=== PATIENT | male | born 1935 | race Caucasian/White ===

== ENCOUNTER 2025-06-22 12:54 | Emergency (ER) | payer OTHER, SELFPAY ==
[2025-06-22 12:57] VITALS: BP 153/82
--- NOTE | 2025-06-22 15:15 | ED.GENMED ---
History of Present Illness
<CHEVY Pearson - Last Filed: 06/22/25 19:09>
General
Chief Complaint: Nose Bleed
Source: patient
Exam Limitations: none
Time Seen by Provider: 06/22/25 15:04
Nursing documentation reviewed up to this point in time: agreed with
History of Present Illness
History of Present Illness:
89-year-old male with past medical history of A-fib hypertension hyperlipidemia pacemaker on Eliquis presents to the ER for nosebleed from right nares. Started at 11 AM .patient reports he just started on Eliquis 30 days ago for A-fib.
He denies any recent trauma headache. Patient is scheduled for cardioversion next week.
Patient does report he has been worked up for leukemia and has a history of low platelets.
In addition he is scheduled for cardioversion by cardiology at an outside institution on Tuesday
Phy Exam
<CHEVY Pearson - Last Filed: 06/22/25 19:09>
General Physical Exam
General Presentation: no apparent distress
General age: appears stated age
General Skin: warm and dry
General Habitus: normal
General Hydration: appears well hydrated
ENT Exam
ENT Exam: other (On exam patient presents with nasal clip small oozing of blood from right nares )
Eye Exam
Eye Exam: PERRL
Cardiovascular Exam
Cardiovascular Exam: irregularly irregular
Pulmonary Exam
Pulmonary Exam: lungs clear and no respiratory distress
Neurological Exam
Neurological Exam: alert and oriented x3
Musculoskeletal Exam
Musculoskeletal Exam: full ROM
Skin Exam
Skin Exam: normal color and warm/dry
Psychiatric Exam
Psychiatric Exam: normal mood/affect
Course
<CHEVY Pearson - Last Filed: 06/22/25 19:09>
Orders/Labs/Results
Orders:
Orders
06/22/25 16:17
Complete Blood Count/With Diff Urgent
Comprehensive Metabolic Panel Urgent
Manual Differential Urgent
Abnormal Lab Results
06/22/25
16:17
RBC 3.64 L 10^6/uL
(4.70-6.10)
Hgb 12.9 L g/dL
(13.0-18.0)
Hct 36.9 L %
(39.0-52.0)
MCV 101.4 H fL
(80.0-94.0)
MCH 35.4 H pg
(27.0-31.0)
RDW 15.5 H %
(11.5-14.5)
Plt Count 74 L 10^3/uL
(130-400)
Monocytes (Manual) 18 H %
(2-9)
Sodium 134 L mmol/L
(135-145)
Carbon Dioxide 21 L mmol/L
(22-30)
BUN 33 H mg/dl
(9-20)
Total Bilirubin 1.5 H mg/dl
(0.2-1.3)
06/22/25 16:17
06/22/25 16:17
Vital Signs
Initial and Last Documented VS:
Initial Vital Signs
Temp Resp BP Pulse Ox
98 F 16 153/82 97
06/22/25 12:57 06/22/25 12:57 06/22/25 12:57 06/22/25 12:57
Last Documented Vital Signs
Temp Pulse Resp BP Pulse Ox
98 F 61 18 175/91 99
06/22/25 12:57 06/22/25 18:12 06/22/25 18:12 06/22/25 18:12 06/22/25 18:12
Drywall Sander consulted with Physician
Drywall Sander consulted with physician?: Yes
Name of Physician Consulted: [facility]
<Jl Antonio, DO - Last Filed: 06/22/25 19:03>
Orders/Labs/Results
Orders:
Orders
06/22/25 16:17
Complete Blood Count/With Diff Urgent
Comprehensive Metabolic Panel Urgent
Manual Differential Urgent
Abnormal Lab Results
06/22/25
16:17
RBC 3.64 L 10^6/uL
(4.70-6.10)
Hgb 12.9 L g/dL
(13.0-18.0)
Hct 36.9 L %
(39.0-52.0)
MCV 101.4 H fL
(80.0-94.0)
MCH 35.4 H pg
(27.0-31.0)
RDW 15.5 H %
(11.5-14.5)
Plt Count 74 L 10^3/uL
(130-400)
Monocytes (Manual) 18 H %
(2-9)
Sodium 134 L mmol/L
(135-145)
Carbon Dioxide 21 L mmol/L
(22-30)
BUN 33 H mg/dl
(9-20)
Total Bilirubin 1.5 H mg/dl
(0.2-1.3)
06/22/25 16:17
06/22/25 16:17
Vital Signs
Initial and Last Documented VS:
Initial Vital Signs
Temp Resp BP Pulse Ox
98 F 16 153/82 97
06/22/25 12:57 06/22/25 12:57 06/22/25 12:57 06/22/25 12:57
Last Documented Vital Signs
Temp Pulse Resp BP Pulse Ox
98 F 61 18 175/91 99
06/22/25 12:57 06/22/25 18:12 06/22/25 18:12 06/22/25 18:12 06/22/25 18:12
Procedures
<CHEVY Pearson - Last Filed: 06/22/25 19:09>
Nosebleed
Drug treatment: Epinephrine
Treatment: Merocel packing
Post treatment bleeding: none- good control
<CHEVY Pearson - Last Filed: 06/22/25 19:09>
MDM/Problems Addressed
Differential Diagnosis Includes:
Not limited to epistaxis
MDM/Problems Addressed:
Patient is an 89-year-old male who presents to the ER with nosebleed, right nares.
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
Patient present with active bleeding however bleeding was controlled and resolved with Murocel packing. Patient was monitored here. Patient's labs were checked his platelets were low at 74,000. He does report last time they were around 86,000.
He is also scheduled for cardioversion on Tuesday.
With thrombocytopenia and Eliquis will have patient hold Eliquis for the next 2 days however I did discuss importance of he with his glass blowing instructor. He will have to reschedule his cardioversion and let his glass blowing instructor know that he is off Eliquis for
2 days. He is also to see ENT on Tuesday for packing removal. He is to return if any worsening of symptoms. He is well-appearing here in the ER stable for discharge home.
1814: Prior to discharge patient started bleeding again from his right nares and 5.5 rapid Rhino inserted will continue to monitor; left nares with small area of bright red blood on the inner aspect of the septum I did cauterize this as well
1909: Patient continues without any bleeding stable for discharge home.
Chronic conditions affecting care:
Being worked up for thrombocytopenia, on Eliquis for A-fib
<CHEVY Pearson - Last Filed: 06/22/25 19:09>
*Pulse Oximetry
SaO2: 97
Oxygen Mode of Delivery: Room air
Patient hypoxic: no
*Critical Care Note
Total Time (30-74mins, 75-104mins- exclusive of procedures): Not Applicable
ED Attending Note
<CHEVY Pearson - Last Filed: 06/22/25 19:09>
-
Portions of this chart may have been created with voice recognition software.� Occasional wrong word or��sound alike� substitutions may have occurred due to the inherent limitations of voice recognition software.
<Jl Antonio DO - Last Filed: 06/22/25 19:03>
ED Attending Note
Patient seen and examined by attending physician: Yes
ED Attending Note:
I reviewed and agree with his and treatment plan by Helean Odom. Exam [id number] male with right-sided epistaxis. Bleeding improved after insertion of Epistat balloon right side. Patient with thrombocytopenia and on Eliquis. Will hold
Eliquis due to bleeding.
Discharge Plan
Departure
Patient with high blood pressure during this ER visit?: Yes
Condition: Fair
Covid-19: Not Applicable
Discharge Problem:
Acute anterior epistaxis
Instructions: Nosebleeds (DC), BLOOD PRESSURE
Referrals:
Jeremías Berman MD [Active, Otology]
Pablo Garnica MD [Family Provider, Internal Medicine]
Activity Restrictions/Additional Instructions:
As discussed stop Eliquis for the next 2 days. Please follow-up with ear nose and throat specialty on Tuesday. Call to make an appointment first thing Tuesday morning to have packing removal on Tuesday as well.
In addition please call your glass blowing instructor Tuesday and inform him of your nosebleed and that you were taken off Eliquis for 2 days.
Your cardioversion will need to be postponed.
Your platelets today were 74,000 please review this with your jewel inserter and family
Return to the ER if any worsening of symptoms including continued bleeding.
Interventions
Interventions:
*Risk Screen - Suicide Last Done: 06/22/25 13:01
*General Assessment Last Done: 06/22/25 18:13
*Neglect/Abuse Screening Last Done: 06/22/25 13:01
ED-EENT Assessment Last Done: 06/22/25 15:10
Discharge Date and Time
Print Language: BANGLADESHI
[2025-06-22 16:54] LABS: ALT (SGPT) 14 U/L (0-50); AST (SGOT) 24 U/L (17-59); Albumin 4.4 g/dl (3.5-5.0); Alkaline Phosphatase 52 U/L (38-126); Blood Urea Nitrogen 33 mg/dl (9-20); Calcium 9.6 mg/dl (8.4-10.2); Carbon Dioxide 21 mmol/L (22-30); Chloride 106 mmol/L (98-107); Glucose 91 mg/dl (70-99); Potassium 4.4 mmol/L (3.5-5.1); Sodium 134 mmol/L (135-145); Total Protein 6.8 g/dl (6.3-8.2); eGFR > 60.00
[2025-06-22 16:55] LABS: Hematocrit 36.9 % (39.0-52.0); Hemoglobin 12.9 g/dL (13.0-18.0); Mean Corp Hgb Conc. 35.0 g/dL (33.0-37.0); Mean Corpuscular Volume 101.4 fL (80.0-94.0); Platelet Count 74 10^3/uL (130-400); Red Cell Dist. Width 15.5 % (11.5-14.5)
[2025-06-22 16:56] LABS: Absolute Neutrophils -Man Diff 2.8 10^3/uL (1.4-6.5); Platelets Checked Yes
[2025-06-22 17:00] LABS: Hypochromasia Slight; Macrocytosis 1+; Target Cells Slight; Total Cells Counted 100
[2025-06-22 17:11] LABS: Normal RBC Morphology No
[2025-06-22 18:12] VITALS: BP 175/91
== END 2025-06-22 19:31 | disposition home or self-care (01) ==
LOC: EMR 12:54
PROVIDERS: Nurse Practitioner; EMERGENCY PHYSICIAN Emergency Medicine; FAMILY PHYSICIAN Internal Medicine
DX: R04.0 Epistaxis (principal); D69.6 Thrombocytopenia, unspecified; I48.91 Unspecified atrial fibrillation; I10 Essential (primary) hypertension; E78.5 Hyperlipidemia, unspecified; Z79.01 Long term (current) use of anticoagulants; Z95.0 Presence of cardiac pacemaker
CPT/HCPCS: 99283; 30901; 80053; 85025

== ENCOUNTER 2025-07-28 01:36 | Inpatient (IN) | payer MEDICARE, OTHER, SELFPAY ==
[2025-07-27 21:00] VITALS: BMI 31.1
[2025-07-27 21:03] VITALS: BP 172/74
[2025-07-27 21:06] VITALS: BP 172/74
[2025-07-27] MEDS: NSS 1000 IV (21:18)
[2025-07-27] MEDS: TYLENOL 1000 MG PO (21:20)
[2025-07-27 21:37] LABS: Hematocrit 36.0 % (39.0-52.0); Hemoglobin 12.7 g/dL (13.0-18.0); Mean Corp Hgb Conc. 35.3 g/dL (33.0-37.0); Mean Corpuscular Volume 100.6 fL (80.0-94.0); Nucleated Red Blood Cells % 0.4 % (-); Red Cell Dist. Width 16.2 % (11.5-14.5)
[2025-07-27 21:38] LABS: INR 1.55; PT 18.8 Sec (11.4-14.6)
[2025-07-27 21:39] LABS: APTT 40.7 Sec (23.4-35.0)
[2025-07-27 21:44] LABS: ALT (SGPT) 16 U/L (0-50); AST (SGOT) 26 U/L (17-59); Albumin 4.4 g/dl (3.5-5.0); Alkaline Phosphatase 60 U/L (38-126); Blood Urea Nitrogen 22 mg/dl (9-20); Calcium 9.1 mg/dl (8.4-10.2); Carbon Dioxide 24 mmol/L (22-30); Chloride 99 mmol/L (98-107); Estimated Creatinine Clearance 53 ml/min; Glucose 148 mg/dl (70-99); Potassium 4.1 mmol/L (3.5-5.1); Sodium 131 mmol/L (135-145); Total Protein 7.0 g/dl (6.3-8.2); eGFR > 60.00
[2025-07-27 21:48] LABS: COVID-19 Antigen Negative (Negative)
[2025-07-27 22:00] VITALS: BP 134/62
[2025-07-27 22:01] LABS: Platelet Count 59 10^3/uL (130-400)
--- NOTE | 2025-07-27 22:30 | ED.GENMED ---
History of Present Illness
General
Chief Complaint: Fatigue
Time Seen by Provider: 07/27/25 21:01
Nursing documentation reviewed up to this point in time: agreed with
History of Present Illness
History of Present Illness:
89-year-old male brought to the ER by EMS for evaluation of fever and weakness which started it within the past few days. Patient is denying any complaints of pain. reports that he has been having a cough and decreased appetite today. No
reported sick contacts. No recent antibiotic usage. No rash. No diarrhea. No vomiting. Patient denies headache or change in vision. He denies chest pain or shortness of breath. He denies urinary discomforts. No recent or prior history of
urinary tract infection per the who is present at bedside to provide history
Review of Systems
Review of Systems
Allergies reviewed?: Yes
Phy Exam
Physical Exam
Physical Exam:
Patient is elderly, awake, alert, appears in no acute distress, head is NCAT, PERRL, EOMI mucous membranes tacky, conjunctiva pink, heart regular rate and rhythm without murmurs or ectopy, lungs are clear to auscultation without wheezes rales or
rhonchi, no JVD, abdomen is soft and nontender on palpation, extremities without edema, GCS is 15
Sepsis
Sepsis Screening
Sepsis Assessment: Severe Sepsis
Sepsis Screening: Worsening O2 Saturation
Sepsis Screen
Sepsis Screen: Severe Sepsis
Date: 07/28/25
Time: 01:28
Course
Orders/Labs/Results
Orders:
Orders
07/27/25 21:01
Electrocardiogram (*1) Urgent
Reason for Study: Other
Other Reason for Exam: sepsis
Cardiac Monitoring- Treatment ONCE
EKG- Treatment ONCE
Pulse Ox/cont/shift [RESP] Urgent
Quantity: 1
07/27/25 21:02
CR Chest - 2 Views Urgent
Comment:
Reason For Exam: fever
07/27/25 21:07
0.9% Sodium Chloride 1000 ml [Nss] 1,000 ml IV BOLUS
Acetaminophen [Tylenol] 1,000 mg PO NOW STA
07/27/25 21:13
Blood Culture Q30M
SERENA Source: Blood/Venous
Specimen Description:
07/27/25 21:14
COVID-19 Antigen Urgent
Source: Nasal Swab
Complete Blood Count/With Diff Urgent
Comprehensive Metabolic Panel Urgent
Lactic Acid Q4H
Comment: CANCEL 2nd LACTIC ACID IF 1st LACTIC ACID IS LESS THAN 2
PTT Urgent
Prothrombin Time Urgent
Urinalysis Reflex To Culture Urgent
Date Specimen was Collected: 07/27/25
Time Specimen was Collected: 21:05
Comment: straight cath
Urine Microscopic Reflex Cult Urgent
Blood Culture Q30M
SERENA Source: Blood/Venous
Specimen Description:
Influenza A+B Rapid Molecular Urgent
SERENA Source: Nasal Swab
Specimen Description:
Urine Culture Urgent
SERENA Source: U
Specimen Description:
Date Specimen was Collected: 07/27/25
Time Specimen was Collected: 21:05
07/27/25 22:28
CefTRIAXone [Rocephin] 2,000 mg IV NOW STA
07/27/25 22:29
Vancomycin [Vancocin] 2,000 mg 0.9% Sodium Chloride 500 ml [Nss] 500 ml IV NOW
07/27/25 23:25
Sterile Water [Sterile Water For Injection] 20 ml .ROUTE .STK-MED
07/28/25 00:27
Admit/Transfer Patient As Directed
Co-Sign Provider:
Level of Care: Inpatient admission
Assign to:: IMU- Intermediate Care
Physician / Group: Nataly
Diagnosis: sepsis
Reason for Hospitalization: sepsis, uti
Expected length of stay greater than two midnights?: Yes
ELOS- Estimated Length of Stay in days: 2
I certify the patient meets the requirements for IP care: Yes
PRN Pain Medication Management As Directed
May give lesser potent ordered pain med per pt: Yes
preference::
Protocol:: Medication orders for pain may be administered in a
manner that supports deferring to patient preference
when the pt is:
- Requesting an ordered lesser potent pain medication.
Least to most potent pain medications are defined
as: acetaminophen < NSAID < tramadol < opioids
(morphine, oxycodone, hydromorphone).
- Requesting a lesser dose of the same medication IF
ORDERED.
- Requesting a less intrusive route of administration
if both routes are prescribed by the provider (PO <
IV).
07/28/25 00:28
Code Status As Directed
Resuscitation Status: Full Code
07/28/25 01:15
Lactic Acid Q4H
Comment: CANCEL 2nd LACTIC ACID IF 1st LACTIC ACID IS LESS THAN 2
Abnormal Lab Results
07/27/25
21:14
RBC 3.58 L 10^6/uL
(4.70-6.10)
Hgb 12.7 L g/dL
(13.0-18.0)
Hct 36.0 L %
(39.0-52.0)
MCV 100.6 H fL
(80.0-94.0)
MCH 35.5 H pg
(27.0-31.0)
RDW 16.2 H %
(11.5-14.5)
Plt Count 59 L 10^3/uL
(130-400)
Abs Immat Gran (auto) 0.1 H 10^3/uL
(0-0.05)
Absolute Lymphs (auto) 0.2 L 10^3/uL
(1.2-3.4)
Immature Gran % 2.2 H %
(0-0.5)
Neutrophils % 82.1 H %
(42.2-75.2)
Lymphocytes % 3.8 L %
(20.5-51.1)
Monocytes % 11.7 H %
(1.7-9.3)
PT 18.8 H Sec
(11.4-14.6)
APTT 40.7 H Sec
(23.4-35.0)
Sodium 131 L mmol/L
(135-145)
BUN 22 H mg/dl
(9-20)
Glucose 148 H mg/dl
(70-99)
Total Bilirubin 1.9 H mg/dl
(0.2-1.3)
Urine Ketones 1+ A
(Negative)
Ur Occult Blood Reflex 2+ A
(Negative)
Urine Nitrite (Reflex) Positive A
(Negative)
Leukocyte Esterase Rfl 2+ A
(Negative)
Urine RBC 3-6 A /HPF
(0-2)
Urine WBC (Reflex) 30-40 A /HPF
(0-5)
Urine Bacteria (Reflex) Many A
(Negative)
Urine Glucose 4+ A
(Negative)
Urine Albumin (Reflex) 1+ A
(Neg - Trace)
07/27/25 21:14
07/27/25 21:14
White blood count normal. Mild hyponatremia, urinalysis consistent with infection
Vital Signs
Initial and Last Documented VS:
Initial Vital Signs
BP
172/74
07/27/25 21:03
Last Documented Vital Signs
Temp Pulse Resp BP Pulse Ox
99.1 F 61 19 96/59 98
07/28/25 00:41 07/28/25 01:15 07/28/25 01:15 07/28/25 01:00 07/28/25 01:15
MDM/Problems Addressed
Differential Diagnosis Includes:
Differential diagnosis to consider pneumonia, influenza, COVID, UTI, sepsis along with other allergies considered
Chronic conditions affecting care:
Advanced age, chronic anticoagulant use, atrial fibrillation, hypertension, hyperlipidemia
*Radiology
Radiology exam reviewed: preliminary read by ED provider (I independently viewed and interpreted two-view chest x-ray showing no infiltrate, normal cardiac silhouette) and radiology read reviewed (Is in agreement with pulmonary reading)
*Pulse Oximetry
SaO2: 96
Nasal Cannula flow liters per minute: 2
Oxygen Mode of Delivery: Room air
Patient hypoxic: yes
Comment: 90% on room air
*EKG
Interpreted by ED Provider?: Yes (I independently viewed and interpreted twelve-lead EKG showing paced rhythm, rate 66, nonspecific EKG without evidence for acute ischemia, no prior for comparison)
*Reservoir Engineer Interpretation
Rate: other (I reviewed and interpreted rhythm strip showing paced rhythm, no ectopy)
*Critical Care Note
Total Time (30-74mins, 75-104mins- exclusive of procedures): Not Applicable
Update Note
Update Note:
Chest x-ray is clear. White blood count is normal. Patient has fever of unclear etiology. Broad-spectrum antibiotics are ordered. Will also obtain CT if urinalysis results are unrevealing
Once all test results available, I discussed with patient and present at bedside presence of urinary tract infection and need for admission, in particular given new use of oxygen for hypoxia and generalized weakness. They agree with plan. I
reviewed full patient presentation with the hospitalist who accepts patient for admission
ED Attending Note
-
Portions of this chart may have been created with voice recognition software.� Occasional wrong word or��sound alike� substitutions may have occurred due to the inherent limitations of voice recognition software.
Discharge Plan
Departure
Patient Disposition: Admit
Date of Disposition: 07/27/25
Time of Disposition: 23:36
Presentation/result/management discussed w/ accepting MD/DO: Hospitalist
Discharge Problem:
Urinary tract infection, Sepsis, Hypoxia
Prescriptions:
No Action
atorvastatin 80 mg tablet
80 mg PO DAILY
clonidine HCl 0.1 mg tablet
0.1 mg PO BID
carvedilol 6.25 mg tablet
6.25 mg PO BID
tamsulosin 0.4 mg capsule
0.4 mg PO HS
irbesartan 75 mg tablet
75 mg PO DAILY
irbesartan 150 mg tablet
150 mg PO HS
dutasteride 0.5 mg capsule
0.5 mg PO DAILY
tadalafil 5 mg tablet
5 mg PO DAILY
Eliquis 5 mg tablet
5 mg PO BID
dapagliflozin propanediol [Farxiga] 10 mg tablet
10 mg PO DAILY
Referrals:
UNKNOWN - PT DOES,NOT KNOW [Family Provider]
Interventions
Interventions:
*Risk Screen - Suicide Last Done: 07/27/25 21:08
*General Assessment Last Done: 07/27/25 21:08
*Neglect/Abuse Screening Last Done: 07/27/25 21:08
*ED- Fall Risk Assessment Last Done: 07/27/25 21:08
*ED COVID-19 Vaccine History Last Done: 07/27/25 21:08
*ED Influenza Vaccine History Last Done: 07/27/25 21:08
Discharge Date and Time
Print Language: MALAY
[2025-07-27 22:37] LABS: Urine Character Slightly Cloudy (Clear)
[2025-07-27 22:49] LABS: Urine Squamous Cell 0-2 /LPF (Few)
[2025-07-27 22:50] LABS: Urine White Cell 30-40 /HPF (0-5)
[2025-07-27 23:00] VITALS: BP 111/66
[2025-07-27] MEDS: ROCEPHIN 2000 MG IV (23:30)
[2025-07-27] MEDS: VANCOCIN 540 MG IV (23:31)
[2025-07-28] VITALS (37 sets, daily range): BP systolic 80–149; BP diastolic 43–77; PULSE 70; O2SAT 96; BMI 31.1
--- NOTE | 2025-07-28 00:05 | HPS.HSE ---
Family Physician
-
Family Physician: NOT KNOW UNKNOWN - PT DOES
Chief Complaint
-
Weakness
History of Present Illness
89-year-old male with past medical history significant for atrial fibrillation on anticoagulation, hypertension, BPH, hyperlipidemia who presents to the emergency department via EMS for evaluation of fever and weakness.
Patient is denying any complaints in the ED. Spouse reports that he has been having a cough and a decreased appetite today. They do not have any known sick contacts. Has been no rash, no diarrhea, no nausea or vomiting. Denies any abdominal
pain. Patient denies any neck pain or neck stiffness. He denies any feeling of shortness of breath. He denies any urinary symptoms. He has no prior history of urinary tract infections and denies any flank pain. Denies any falls.
In the emergency department patient was febrile to 102.7, blood pressure was 112/60 with a pulse rate of 69 and been satting 96% on room air. Chest x-ray shows no infiltrates whatsoever. ECG shows a paced rhythm at rate of 66. CBC notable for
platelet count of 59 but otherwise unremarkable. INR was 1.5.
Electrolytes notable for sodium of 131, BUN and creatinine were normal.
UA was markedly positive for nitrites leukocyte esterase and WBCs as well as bacteria. His COVID and flu test were negative.
Medical History
Past Medical History
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
Past Surgical History: Reports Appendectomy
Social History
Tobacco: Non-smoker
Alcohol: None
Drug: None
Family History
Family History: Not pertinent
Allergies / Home Medications
Allergies reflects when Allergies were last updated in [employer].
Home Medications with original date entered in [employer]
Allergy/Medication List:
Allergies
Allergy/AdvReac Type Severity Reaction Status Date / Time
No Known Allergies Allergy Verified 07/27/25 21:01
Home Medications
apixaban 5 mg tablet (Eliquis) 5 mg PO BID 07/28/25
atorvastatin 80 mg tablet 80 mg PO DAILY 07/28/25
carvedilol 6.25 mg tablet 6.25 mg PO BID 07/28/25
clonidine HCl 0.1 mg tablet 0.1 mg PO BID 07/28/25
dapagliflozin propanediol 10 mg tablet (Farxiga) 10 mg PO DAILY 07/28/25
dutasteride 0.5 mg capsule 0.5 mg PO DAILY 07/28/25
irbesartan 150 mg tablet 150 mg PO HS 07/28/25
irbesartan 75 mg tablet 75 mg PO DAILY 07/28/25
tadalafil 5 mg tablet 5 mg PO DAILY 07/28/25
tamsulosin 0.4 mg capsule 0.4 mg PO HS 07/28/25
Review of Systems
-
Unable to obtain full review of systems at this time due to: Acuity
Physical Exam
Vital Signs
Vital Signs
Temp Pulse Resp BP Pulse Ox
102.7 F H 69 23 134/62 96
07/27/25 21:06 07/27/25 22:00 07/27/25 22:00 07/27/25 22:00 07/27/25 22:31
Physical Exam
General: No Apparent Distress and Conversant
HEENT: NormoCephalic, Anicteric, Moist mucous membranes and Oxygen
Respiratory: Crackles (Right lower lobe crackles)
Cardiac: S1/S2 and Regular Rhythm; No Murmur, Rub, Gallop or Peripheral Edema
Breast: Deferred by me
GI: Non Tender and Normal Bowel Sounds
Rectal: Deferred by Provider
Genito-urinary: Deferred by me
Musculoskeletal: No Clubbing, No Cyanosis and No Edema
Skin: Warm
Neuro: AO x 3 and Nonfocal/grossly intact
Psych: Calm
Laboratory Results
-
07/27/25:14
07/27/25 21:14
Laboratory Results
PT 18.8 Sec (11.4-14.6) H 07/27/25 21:14
INR 1.55 07/27/25 21:14
APTT 40.7 Sec (23.4-35.0) H 07/27/25 21:14
Lactic Acid 1.6 mmol/L (0.7-2.0) 07/27/25:14
Total Bilirubin 1.9 mg/dl (0.2-1.3) H 07/27/25:14
AST 26 U/L (17-59) 07/27/25:14
ALT 16 U/L (0-50) 07/27/25:14
Alkaline Phosphatase 60 U/L (38-126) 07/27/25:14
Data Reviewed
-
Diagnostic Radiology: Image Personally Visualized and interpreted and Report Reviewed by me
Medical Tests (Nuc Med, Echo, EKG etc): Image Personally Visualized and interpreted
Lab Data: Labs Reviewed by me
Old Records: Reviewed
Impression/Plan
-
IMPRESSION:
89-year-old male with past medical history significant for atrial fibrillation, hypertension, BPH, valve replacement who presents to the emergency department with fever and weakness. Unclear extent of the events. Patient actually denied any
urinary symptoms but was incidentally found to have a urinary tract infection with likely positive UA after straight catheterization. His chest x-ray shows no convincing infiltrates but he is requiring 2 L of oxygen. CBC was notable for platelet
count of 59 but otherwise unremarkable. There is a left shift but no bands reported. COVID and flu are negative. Electrolytes notable for a sodium of 131 but otherwise unremarkable. His creatinine is stable. Infectious sources definitely UTI
but cannot rule out pneumonia entirely.
PLAN:
Urinary tract infection -likely on the basis of BPH, no history of kidney stones. And no HAVEN to suggest acute retention.
-Admit to IMU given sepsis
-Patient's blood pressure has been trickling down from the 170s now 200s systolic with a MAP of 68, will monitor in IMU for now and start pressors if MAP is below 60.
-He is status post 1 L normal saline
-Blood cultures sent, urine culture sent
-IV ceftriaxone 2 g daily continued
-IV vancomycin x 1 given in ED, will check MRSA swab as well as procalcitonin to determine continuation
-Supplemental oxygen
- CT abdomen and pelvis if hemodynamically significant compromise or persistent fever.
-Incentive spirometry
Hypertension
-Will continue carvedilol with hold parameters
-Hold clonidine for now
-Hold ARB for now
BPH
-Continue alpha blockade and tadalafil as well as dutasteride
Atrial fibrillation -currently controlled and paced rhythm
- On apixaban, continue for now
- Continue Coreg with hold parameters
Thrombocytopenia -no prior CBC in record here. No known thrombocytopenia possibly related to an acute infectious process
- Continue Eliquis, no current risk of bleeding, consider stopping if thrombocytopenia goes below 40.
- Monitor for now, once afebrile and infection resolved can consider hematology consult if no improvement
DVT prophylaxis�on apixaban
CODE STATUS�full code
[2025-07-28 06:11] LABS: Hematocrit 32.5 % (39.0-52.0); Hemoglobin 11.1 g/dL (13.0-18.0); Mean Corp Hgb Conc. 34.2 g/dL (33.0-37.0); Mean Corpuscular Volume 101.6 fL (80.0-94.0); Platelet Count 51 10^3/uL (130-400); Red Cell Dist. Width 16.6 % (11.5-14.5)
[2025-07-28 06:45] LABS: Procalcitonin 7.74 ng/ml (0.0-0.25)
[2025-07-28] MEDS: LIPITOR 80 MG PO (07:30)
[2025-07-28] MEDS: TYLENOL 650 MG PO ×2 (07:30→20:39)
[2025-07-28] MEDS: FARXIGA 10 MG PO (07:30)
[2025-07-28] MEDS: PROSCAR 5 MG PO (07:30)
[2025-07-28] MEDS: ELIQUIS 5 MG PO ×2 (07:30→20:48)
[2025-07-28] MEDS: COREG 6.25 MG PO (07:30)
[2025-07-28 07:36] LABS: Glucose - Point of Care 100 mg/dl (70-99)
--- NOTE | 2025-07-28 08:56 | W.PN.HOSP.TC ---
Today's Communication/Plan
-
see PN
Assessment / Plan
Assessment / Plan
89yo M with PMHx of Afib on ELiquis s/p PPM, HTN, BPH with chronic urinary retention self-cath at home as needed (4-6 times a day), HLD came with few days of progressive weakness and fevers, developed also cough with sputum, managed for UTI and
possible acute bronchitis
A/P
#UTI
Sepsis concern on admission, however rapidly resolved as not seen during next day eval
US renal
Ceftriaxone pending Ucx
#Mild respiratory insufficiency
Wean off O2
#Acute bronchitis
DOxy
COVID-19 and influenza PCR neg
#CHronic thrombocytopenia
#Elevated bilirubin
no RUQ pain
Previously followed by apiarist in [place] as per patient
follow direct bili, LDH and retics
Reccomend to cont following with established specialists
#DM type 2
patient reported most recent ZSilp3v 6.5%
DM diet, accuchecks and insulin SS
Recheck HgbA1c
#Mild bibasilar crackes
LAsix PRN, no overt CHF and pulm congestion on XR
#Afib, unspecified
#BPH
#Essential HTN
S/P ppm
cont straight cath - patient can feel when he needs it
cont home meds
DVT ppx on Elqiusi
FUll code
I have spent at least 58 min reviewing chart, test results and providing direct patient care
Anticipated Discharge: 24 - 48 hours
Subjective/Interval History
-
Date of Service: July 28, 2025
Objective Data
-
Labs:
Laboratory Results
07/27/25 07/28/25
21:14 05:52
WBC 4.9 12.9 H
Hgb 12.7 L 11.1 L
Hct 36.0 L 32.5 L
Plt Count 59 L 51 L
PT 18.8 H
INR 1.55
APTT 40.7 H
Sodium 131 L
Potassium 4.1
Chloride 99
Carbon Dioxide 24
BUN 22 H
Creatinine 1.0
Glucose 148 H
Calcium 9.1
Total Bilirubin 1.9 H
AST 26
ALT 16
Alkaline Phosphatase 60
Vital Signs:
Vital Signs
Temp Pulse Resp BP Pulse Ox
99.9 F 65 28 130/59 97
07/28/25 07:42 07/28/25 07:30 07/28/25 07:30 07/28/25 07:30 07/28/25 07:30
I&O
07/27/25 07/28/25 07/29/25
06:59 06:59 06:59
Output Total 400 / 400
Balance -400 / -400
Review of Systems
-
History Source: Patient
All other systems: Reviewed and negative
Physical Exam
-
General: No Apparent Distress
HEENT: Normocephalic
Respiratory: Crackles
GI: Soft, Nontender and Nondistended
Genito-urinary: No Costovertebral Tender
Musculoskeletal: No Clubbing, No Cyanosis and No Edema
Neuro: Awake, Alert, Oriented and AO x 3
Psych: Calm
[2025-07-28 09:06] LABS: Reticulocyte Count 2.3 % (0.4-2.8)
[2025-07-28] MEDS: VIBRAMYCIN 100 MG PO (09:31)
--- NOTE | 2025-07-28 09:56 | CM ---
Patient seen at bedside in ED. Patient states that he lives with his in a 2 story home. Patient has a cane that he uses and is still driving. Patient states he lives 6 months in [place] and 6 months here in [place]. 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
and has a doctorate in education. 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 Patient uses [facility] [place] for his pharmacy needs and he states his PCP is Dr. Garnica from [facility]. Patient plan is for discharge home with no
needs. CM will continue to follow for discharge planning needs.
Plan; home with no needs vs home with VN pending medical treatment plan
[2025-07-28 10:55] LABS: Glycohemoglobin (HgbA1c) 6.2 % (4.0-5.6)
[2025-07-28] MEDS: NSS 500 IV (11:50)
[2025-07-28 12:09] LABS: Glucose - Point of Care 153 mg/dl (70-99)
[2025-07-28] MEDS: NOVOLOG FLEXPEN-LOW RESISTANCE 1 UNITS SC (13:50)
--- NOTE | 2025-07-28 14:08 | PTCARENOTE ---
Received pt from ER via stretcher, accompanied by ER staff. Pt HARISHO x3, HOH. PATEL; able to transfer to bed with assist x1; pt weak, moves slowly. VSS. Placed on telemetry:AV paced rhythm. 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
Abd obese, soft, to be on 2000 james diet. Pt DTV; self-caths; stated 'Ill let yopu know when I need it'. Oriented to 4east, currently resting in bed. Will continue to monitor.
[2025-07-28] MEDS: FLUSH (NSS) 1 FLUSH IV ×2 (14:23→15:28)
[2025-07-28] MEDS: ZOSYN 50 IV (14:23)
--- NOTE | 2025-07-28 14:31 | PHA.VAN.IN ---
Assessment
- Assessment
Renal Function: Appears similar to baseline
Maximum Temperature: 102.7F
Concomitant Antimicrobials: Piperacillin/tazobactam
AUC Dosing Plan
- Dosing Variables
Dosing Weight (kg): 87.3
Dosing CrCl (ml/min): 53
Vd coefficient (L/kg): 0.7
- Empiric Dosing
Initial / Loading Dose: Vancomycin 2000mg 07/27 at 2230, vanc 1000g now- administration pending
Maintenance Regimen: Vancomycin 1500mg IV Q24h to start 07/29 at 0600
Estimated AUC (mcg*h/mL): 520
Estimated Peak (mcg*h/mL): 35.7
Estimated Trough (mcg/ml): 11.7
Estimated Half Life (H): 14
- Monitoring
No levels ordered at this time: Consider levels in a few days.
Pharmacokinetics Vancomycin I
- -
Patient Age: 89
Patient Sex: Male
Vancomycin Day #: 2
Indication: Bacteremia
Requesting Provider: Dr. Valenzuela
Pertinent Antimicrobial Allergies:
NKA
Height / Weight:
Height 5 ft 6 in
Actual Weight 87.3 kg
- Vital Signs / Lab Results
Temp Pulse Resp BP Pulse Ox
98.3 F 62 16 109/61 96
07/28/25 13:30 07/28/25 13:30 07/28/25 13:30 07/28/25 13:30 07/28/25 13:47
Lab Results - Hematology
07/27/25 07/28/25
21:14 05:52
WBC 4.9 12.9 H
Lab Results - Chemistry
07/27/25
21:14
BUN 22 H
Creatinine 1.0
Estimated Creat Clear 53
Albumin 4.4
07/27/25 07/28/25
21:14 01:15
Lactic Acid 1.6 Cancelled
Lab Results - Urine
07/27/25
21:14
Urine Nitrite (Reflex) Positive A
Leukocyte Esterase Rfl 2+ A
Urine WBC (Reflex) 30-40 A
Ur Squamous Epith Cells 0-2
Urine Bacteria (Reflex) Many A
Microbiology Results
07/27/25 21:14 Blood Culture - Preliminary
Blood/Venous Positive culture in progress
Gram Stain - Preliminary
07/27/25 21:13 Blood Culture - Preliminary
Blood/Venous Positive culture in progress
Gram Stain - Preliminary
07/27/25 21:14 Influenza Types A & B (AYANNA) - Final
Nasal Swab Negative for Influenza A & B, NAAT
Negative results must be combined with clinical observations
and patient history.
Nucleic Acid Amplification test (NAAT)performed on the
[employer] platform.
[2025-07-28 15:00] LABS: LDH 289 U/L (120-246)
[2025-07-28] MEDS: VANCOCIN 200 IV (15:28)
--- NOTE | 2025-07-28 15:37 | PTOTSP ---
Speech Pathology
Clinical Swallow Evaluation
89M with admission for UTI presents with a functional oropharyngeal swallow. No overt s/s of aspiration observed this date.
Recommend:
1. Continue with regular textures, thin liquids
2. Meds as best tolerated
3. BARTENDER SERVER service to s/o re: no overt concerns for aspiration at this time. Please re-consult as needed.
--- NOTE | 2025-07-28 15:46 | CON.ID ---
Consultation
-
Date/Time Consultation Requested: July 28, 20251522
Date/Time Consultation Performed: July 28, 2025 154
Requesting Provider: Dr. Hernán Valenzuela
Performing Provider: Dr. Sakina Gallagher
Reason for Consultation: Staphylococcus lugdunensis bacteremia
Chief Complaint / Past History
Chief Complaint
Fever
History of Present Illness
History obtained from the patient as well as from his at bedside. He is an 89-year-old male with history of TAVR, pacemaker placement, diabetes mellitus who presented to the ED on July 27 due to fevers and chills. He started feeling unwell
Tuesday night into Tuesday. He was getting progressively weak with malaise and poor appetite. Positive shortness of breath and dry cough. He started having chills and fever. Positive headache with a fever. No rhinorrhea, or sinus congestion.
No sore throat. No chest pain. No nausea, vomiting, abdominal pain, or diarrhea. No urine symptoms or flank pain. No back pain. No ill contacts. He has been having a flutter lately. Of note he was in the ER June 22 with significant
epistaxis requiring nasal packing. In the ER, temperature 102.7 noted to be hypoxic. Chest x-ray: no infiltrates. Admission blood cultures x 2 growing Staphylococcus lugdunensis.
Past History
Additional Past Medical History:
Hypertension
TAVR t HUP
Atrial fibrillation
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
HFrEF
Thrombocytopenia
BPH
gout
Sleep apnea on CPAP
Appendectomy
Allergy History:
No Known Allergies Allergy (Verified 07/27/25 21:01)
Medications Reviewed: Yes
Current Antibiotics:
Zosyn
Vancomycin
s/pDoxycycline and ceftriaxone
Social History
Tobacco: Non-Smoker
Alcohol: None
Drug: None
Personal:
Living: With Family
Family History
Family History: Not Pertinent
Review of Systems
Review of Systems
General: Fever, Chills and Change in Appetite
HEENT: Negative Stiff Neck or Headache
Cardiovascular: Dyspnea; Negative Chest Pain
Respiratory: Cough; Negative Sputum Production
Gasteroenterology: Negative Nausea, Vomiting or Diarrhea
Genital / Urological: Negative Dysuria or Flank Pain
Endocrine: Weakness and Fatigue
All systems: All other systems were reviewed and were negative
Vital Signs
Temp Pulse Resp BP Pulse Ox
98.3 F 62 16 109/61 96
07/28/25 13:30 07/28/25 13:30 07/28/25 13:30 07/28/25 13:30 07/28/25 13:47
Physical Exam
Physical Exam
Constitutional: No Acute Distress and Comfortable
Eyes: No Conjunctival Hemorrhage and Sclera Anicteric
Cardiovascular: Regular Rate, S1/S2 and Other (LCW PPM no erythema/induration)
Pulmonary: Clear
Gastrointestinal: Soft, Non Tender and Non Distended
Genito-Urinary: Negative CVA Tenderness
Extremities: Negative Edema
Wound: None
Neurological: AO x 3
Lab / Diagnostic Study Results
07/28/25 05:52
07/27/25 21:14
Abs Immat Gran (auto) 0.1 10^3/uL (0-0.05) H 07/27/25 21:14
Absolute Neuts (auto) 4.1 10^3/uL (1.4-6.5) 07/27/25 21:14
Absolute Lymphs (auto) 0.2 10^3/uL (1.2-3.4) L 07/27/25 21:14
Absolute Monos (auto) 0.6 10^3/uL (0.1-0.6) 07/27/25 21:14
Absolute Basos (auto) 0.0 10^3/uL (0-0.2) 07/27/25 21:14
Immature Gran % 2.2 % (0-0.5) H 07/27/25 21:14
Neutrophils % 82.1 % (42.2-75.2) H 07/27/25 21:14
Lymphocytes % 3.8 % (20.5-51.1) L 07/27/25 21:14
Monocytes % 11.7 % (1.7-9.3) H 07/27/25 21:14
Eosinophils % 0.0 % (0-6) 07/27/25 21:14
Basophils % 0.2 % (0-2) 07/27/25 21:14
PT 18.8 Sec (11.4-14.6) H 07/27/25 21:14
INR 1.55 07/27/25 21:14
Lactic Acid Cancelled 07/28/25 01:15
Procalcitonin 7.74 ng/ml (0.0-0.25) H* 07/28/25 05:52
Ur Squamous Epith Cells 0-2 /LPF (Few) 07/27/25 21:14
Microbiology Results
Micro:
07/27/25 21:13 Blood Culture - Preliminary
Blood/Venous Staphylococcus lugdunensis
Gram Stain - Preliminary
07/27/25 21:14 Blood Culture - Preliminary
Blood/Venous Positive culture in progress
Gram Stain - Preliminary
07/28/25 05:52 MRSA Screen - Pending
Nose
07/27/25 21:14 Urine Culture - Pending
Urine
07/27/25 21:14 Influenza Types A & B (AYANNA) - Final
Nasal Swab Negative for Influenza A & B, NAAT
Negative results must be combined with clinical observations
and patient history.
Nucleic Acid Amplification test (NAAT)performed on the
[employer] platform.
07/27/25 CXR: No acute cardiopulmonary process.
Assessment / Plan
# Staphylococcus lugdunensis bacteremia
# Fever
# Leukocytosis
# hx bio-prosthetic valve and PPM
- Concern for infective endocarditis
- Recommend TTE. If neg -> CHERRI
- Repeat blood cx's until clear
- De-escalate abx's to cefazolin 2g IV q8.
- Follow temps and wbc.
# Conditions present on admission
Hypertension
TAVR t HUP
Atrial fibrillation
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
HFrEF
Thrombocytopenia
BPH
gout
Sleep apnea on CPAP
Appendectomy
Care Review
Plan reviewed with: Physician (Dr. Valenzuela)
--- NOTE | 2025-07-28 17:14 | PTCARENOTE ---
Pt resting comfortably since arrival on unit. VSS. Telemetry:AV paced rhythm. Maintained on nc 1 lpm- pulse ox 94%, pt with (+) slifght GRANADOS; occ dry cough. Martinez PO well. Pt HNV; earlier bladder- scan 198 ml; pt stated 'I can tell when I need to
be catheterized'. Will continue to monitor.
[2025-07-28 17:36] LABS: Glucose - Point of Care 91 mg/dl (70-99)
[2025-07-28] MEDS: NOVOLOG FLEXPEN-LOW RESISTANCE SC (17:39)
[2025-07-28] MEDS: FLOMAX 0.4 MG PO (20:48)
[2025-07-28] MEDS: DESENEX/MITRAZOL/ZEASORB 1 APPLIC TOPICAL (20:48)
[2025-07-28] MEDS: COREG 3.125 MG PO (20:49)
[2025-07-28] MEDS: ANCEF 10 IV (21:50)
[2025-07-28 21:59] LABS: Glucose - Point of Care 109 mg/dl (70-99)
[2025-07-29] VITALS (7 sets, daily range): BP systolic 142–166; BP diastolic 70–91; PULSE 73; O2SAT 96
[2025-07-29] MEDS: ANCEF 10 IV ×3 (05:57→21:37)
[2025-07-29] MEDS: COREG 3.125 MG PO ×2 (07:30→20:36)
[2025-07-29] MEDS: PROSCAR 5 MG PO (07:32)
[2025-07-29] MEDS: ELIQUIS 5 MG PO ×2 (07:32→20:36)
[2025-07-29] MEDS: FARXIGA 10 MG PO (07:32)
[2025-07-29] MEDS: LIPITOR 80 MG PO (07:32)
[2025-07-29] MEDS: DESENEX/MITRAZOL/ZEASORB 1 APPLIC TOPICAL ×2 (07:33→20:35)
[2025-07-29 07:43] LABS: Glucose - Point of Care 75 mg/dl (70-99)
[2025-07-29] MEDS: NOVOLOG FLEXPEN-LOW RESISTANCE SC ×3 (07:47→17:22)
[2025-07-29 09:09] LABS: Hematocrit 34.4 % (39.0-52.0); Hemoglobin 11.9 g/dL (13.0-18.0); Mean Corp Hgb Conc. 34.6 g/dL (33.0-37.0); Mean Corpuscular Volume 100.9 fL (80.0-94.0); Platelet Count 44 10^3/uL (130-400); Red Cell Dist. Width 16.6 % (11.5-14.5)
--- NOTE | 2025-07-29 09:34 | W.PN.HOSP.TC ---
Today's Communication/Plan
-
cont Abx
repeat Bcx
TTE
Assessment / Plan
Assessment / Plan
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
for UTI and possible acute bronchitis found bacteremia
A/P
#UTI
#Bacteremia
Bcx with staph. jeovanyunensis
Repeat Bcx
ID consult - Ancef
TTE
Sepsis concern on admission, however rapidly resolved as not seen during next day eval
US renal without nephrolithiasis or hydronephrosis
Ucx - GNB
Complicated by presence of PPM and TAVR
#Mild respiratory insufficiency
Wean off O2
#Acute bronchitis
DOxy
COVID-19 and influenza PCR neg
#CHronic thrombocytopenia
#Elevated bilirubin
no RUQ pain
Previously followed by it service continuity supervisor in [place] as per patient
follow direct bili, LDH and retics
Reccomend to cont following with established specialists
#DM type 2
patient reported most recent ZHgxs7w 6.5%
DM diet, accuchecks and insulin SS
Recheck HgbA1c
#Mild bibasilar crackes
LAsix PRN, no overt CHF and pulm congestion on XR
#Afib, unspecified
#BPH
#Essential HTN
# s/p TAVR
S/P ppm
cont straight cath - patient can feel when he needs it
cont home meds
DVT ppx on Eliquis
FUll code
I have spent at least 51 min reviewing chart, test results and providing direct patient care
Anticipated Discharge: > 48 hours
Subjective/Interval History
-
Date of Service: July 29, 2025
Objective Data
-
Labs:
Laboratory Results
07/29/25
08:16
WBC 8.6
Hgb 11.9 L
Hct 34.4 L
Plt Count 44 L
Sodium Pending
Potassium Pending
Chloride Pending
Carbon Dioxide Pending
BUN Pending
Creatinine Pending
Glucose Pending
Calcium Pending
Total Bilirubin Pending
AST Pending
ALT Pending
Alkaline Phosphatase Pending
Vital Signs:
Vital Signs
Temp Pulse Resp BP Pulse Ox
99.3 F 71 16 165/86 95
07/29/25 07:00 07/29/25 07:30 07/29/25 07:00 07/29/25 07:30 07/29/25 07:00
I&O
07/28/25 07/29/25 07/30/25
06:59 06:59 06:59
Intake Total 610 / 610
Output Total 1999 / 1999
Balance -1390 / -1390
Review of Systems
-
History Source: Patient
All other systems: Reviewed and negative
Constitutional: Reports Fatigue
Physical Exam
-
General: No Apparent Distress
HEENT: Normocephalic
Respiratory: Clear to Auscultation
Cardiac: Murmur (midsystolic)
Neuro: Awake, Alert, Oriented and AO x 3
Psych: Calm
[2025-07-29 09:52] LABS: ALT (SGPT) 26 U/L (0-50); AST (SGOT) 40 U/L (17-59); Albumin 3.5 g/dl (3.5-5.0); Alkaline Phosphatase 49 U/L (38-126); Blood Urea Nitrogen 25 mg/dl (9-20); Calcium 8.3 mg/dl (8.4-10.2); Carbon Dioxide 20 mmol/L (22-30); Chloride 103 mmol/L (98-107); Estimated Creatinine Clearance 53 ml/min; Glucose 107 mg/dl (70-99); Potassium 3.6 mmol/L (3.5-5.1); Sodium 132 mmol/L (135-145); Total Protein 5.9 g/dl (6.3-8.2); eGFR > 60.00
[2025-07-29 10:23] LABS: Absolute Neutrophils -Man Diff 6.0 10^3/uL (1.4-6.5); Anisocytosis 1+; Normal RBC Morphology No; Platelets Checked Yes; Total Cells Counted 100
[2025-07-29 10:43] LABS: Folate 4.2 ng/ml (2.76-20); Vitamin B12 977 pg/ml (239-931)
--- NOTE | 2025-07-29 10:59 | CARDSERVLU ---
Echocardiogram with Lumason completed after protocol screening completed. Allergies verified.
Patent IV site: __Rt FA___
IV site flushed with 0.9% NaCl pre and post administration.
Diluted bolus method utilized to enhance visualization of ventricular greenberg.
Total volume given: __1.5__ mL
Patient tolerated all procedures well without complications.
--- NOTE | 2025-07-29 11:35 | CM ---
Chart reviewed. Care ongoing
Cont IV abx for UTI
Therapy determining SNF vs home w/ assistance. Will re evaluate patient prior to d/c. Patient open to SNF if needed
Plan: Await final PT recommendation
[2025-07-29 12:10] LABS: Glucose - Point of Care 89 mg/dl (70-99)
--- NOTE | 2025-07-29 12:23 | W.PN.ID1 ---
Date of Service
Date of Service: July 29, 2025
Today's Communication
Await TTE. Continue cefazolin.
Assessment / Plan
# Staphylococcus lugdunensis bacteremia
# Fever -resolved
# Leukocytosis -resolved
# hx bio-prosthetic valve and PPM
- Concern for infective endocarditis
- TTE today. If neg -> CHERRI
- Repeat blood cx's until clear
- Continue cefazolin 2g IV q8.
- Follow temps and wbc.
# Conditions present on admission
Hypertension
TAVR t HUP
Atrial fibrillation
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
HFrEF
Thrombocytopenia
BPH
gout
Sleep apnea on CPAP
Appendectomy
Chief Complaint
-: Bacteremia
Subjective / Review of Systems
Feeling better.
Vital Signs / Physical Exam
Vital Signs
Vital Signs
Temp Pulse Resp BP Pulse Ox
99.3 F 71 16 165/86 95
07/29/25 07:00 07/29/25 07:30 07/29/25 07:00 07/29/25 07:30 07/29/25 07:00
Physical Exam
Constitutional: No Acute Distress and Comfortable
Cardiovascular: Regular Rate, S1/S2 and Other (LCW PPM site no erythema)
Pulmonary: Clear
Gastrointestinal: Soft, Non Tender and Non Distended
Genito-Urinary: Negative CVA Tenderness
Neurological: AO x 3
Objective Data
Lab Data
Lab Results
07/29/25 08:16
07/29/25 08:16
PT 18.8 Sec (11.4-14.6) H 07/27/25 21:14
INR 1.55 07/27/25 21:14
APTT 40.7 Sec (23.4-35.0) H 07/27/25 21:14
Estimated Creat Clear 53 ml/min 07/29/25 08:16
Lactic Acid Cancelled 07/28/25 01:15
Total Bilirubin 0.9 mg/dl (0.2-1.3) D 07/29/25 08:16
AST 40 U/L (17-59) 07/29/25 08:16
ALT 26 U/L (0-50) 07/29/25 08:16
Alkaline Phosphatase 49 U/L (38-126) 07/29/25 08:16
Most recent labs reviewed.
Micro Results:
07/27/25 21:14 Urine Culture - Preliminary
Urine Gram negative bacilli
07/29/25 08:46 Blood Culture - Pending
Blood/Venous
07/27/25 21:13 Blood Culture - Preliminary
Blood/Venous Staphylococcus lugdunensis
Gram Stain - Preliminary
07/27/25 21:14 Blood Culture - Preliminary
Blood/Venous Positive culture in progress
Gram Stain - Preliminary
07/29/25 08:16 Blood Culture - Pending
Blood/Venous
07/28/25 05:52 MRSA Screen - Final
Nose No Methicillin Resistant Staphylococcus aureus isolated.
07/27/25 21:14 Influenza Types A & B (AYANNA) - Final
Nasal Swab Negative for Influenza A & B, NAAT
Negative results must be combined with clinical observations
and patient history.
Nucleic Acid Amplification test (NAAT)performed on the
[employer] platform.
07/27/25 CXR: No acute cardiopulmonary process.
[2025-07-29] MEDS: OCEAN, SALINE MIST 2 SPRAYS NASAL (14:57)
--- NOTE | 2025-07-29 15:52 | CON.CAR ---
Addendum entered and electronically signed by Yordan Salgado MD 07/29/25 17:13:
Attending addendum: This is AN 89-year-old gentleman with a past medical history notable for placement of a 29 mm Toth MARIAMA valve at the [facility] for treatment of symptomatic severe aortic stenosis. His procedure was
complicated by the development of complete heart block requiring placement of a [employer] permanent pacemaker. He is chronically anticoagulated for a history of paroxysmal atrial fibrillation with apixaban. He has a prior history of a nonischemic
cardiomyopathy. He presented to [facility] for evaluation of generalized weakness, malaise, fevers, and chills. Blood culture subsequently grew Staphylococcus lugdunensis. He was seen and evaluated by the infectious disease service who
asked for a CHERRI.
PE:
GEN: AAO x 3.��Sitting up in chair. No acute distress
HEENT:�NC/AT, sclera are anicteric
LUNGS: Clear. No wheezing. Frequent cough
CV: Regular rate and rhythm.��Normal S1/S2.��No S3, No S4.��Murmur: I-II/ USB
ABD : Soft, Bowel sounds present
EXT: No CCE
NEURO: No focal neurologic deficits��
RECOMMENDATIONS:
-NPO after midnight
-Planned CHERRI in am.
-Discussed risk and details of the procedure. He is worried about significant back discomfort (chronic) and need for the head of the bed to be elevated
-Continue oral medications with small sip of water
-Further management decisions to be made by ID service after CHERRI is completed
Original Note:
Consultation
Consultation Request
Date/Time Consultation Requested: 07/29/2025
Date/Time Consultation Performed: 07/29/2025
Requesting Provider: Dr. Valenzuela
Performing Provider: Norah Brown PA-C for Dr. Yordan Salgado
Reason for Consultation: Staph bacteremia with pacemaker and TAVR
Medical History
-
History of Present Illness:
Patient is an 89-year-old male with past medical history significant for number 29 mm Toth MARIAMA TAVR on 06/06/2023 at [facility] complicated by complete heart block requiring [employer] permanent pacemaker, heart failure with recovered ejection
fraction, nonischemic cardiomyopathy (improved), paroxysmal atrial fibrillation on chronic anticoagulation with Eliquis, BPH for which he self caths, obstructive sleep apnea on CPAP, thrombocytopenia who presented to [facility] ED on 07/27/2025 with
generalized weakness, malaise, fatigue fevers and chills. Patient also noted some mild shortness of breath associated with dry cough. Chest x-ray on admission unremarkable. EKG demonstrated a sensed V paced rhythm. Blood cultures were positive
for Staphylococcus lugdunensis bacteremia and urine culture positive for gram negative bacilli. Ongoing treatment with IV antibiotics. Cardiology has been consulted for CHERRI given concern of possible endocarditis of TAVR and/or QUARRYING MANAGER pacemaker.
At time of this evaluation patient resting comfortably in chair on 1 L of oxygen via nasal cannula. He complains of persistent dry cough which has been ongoing for about a week. He also complains of generalized weakness malaise and fatigue.
Currently denies fevers or chills. Denies chest pain or shortness of breath at rest but does get short of breath with some activity.
He reports he follows with Dr. Mario Lainez for his general cardiology care. He is followed by Dr. Yordan Carpio for electrophysiology.
PMH:
Aortic stenosis
s/p transcatheter aortic valve replacement #29 Toth [employer] Mariama 3 on 06/06/23 via right femoral artery route at [facility]
Complete heart block post TAVR
Status post [employer] dual chamber pacemaker 06/06/2023
Revision with upgrade to QUARRYING MANAGER pacemaker 08/10/2024 [facility] (Dr. Garcia)
Heart failure with recovered ejection fraction
Nonischemic cardiomyopathy
Paroxysmal atrial fibrillation
Chronic anticoagulation on Eliquis
Hyperlipidemia
Hypertension
Obstructive sleep apnea on CPAP
Thrombocytopenia
BPH, self catheterizes
Gout
Past Medical History
Past Medical History: Other (See HPI)
Past Surgical History: Appendectomy, Cardiac (TAVR 06/05/2023 at [facility], dual-chamber pacemaker 06/05/2023, revision with upgrade to QUARRYING MANAGER pacemaker 07/11/2024 at [facility]) and Tonsilectomy
Social History
Tobacco: Non-Smoker (did smoke for 10 years in his teens and early 20's)
Alcohol: Occasional
Drug: None
Personal:
Living: With Family
Employment: Retired
Family History
Family History: CAD (mother)
Allergies / Home Medications
Allergy/AdvReac Type Severity Reaction Status Date / Time
No Known Allergies Allergy Verified 07/27/25 21:01
�Medication �Instructions �Recorded �Confirmed �Type
apixaban 5 mg tablet (Eliquis) 5 mg PO BID Blood Clot 07/28/25 07/28/25 History
Prevention/Tx
atorvastatin 80 mg tablet 80 mg PO DAILY High Cholesterol 07/28/25 07/28/25 History
carvedilol 6.25 mg tablet 6.25 mg PO BID Heart Failure 07/28/25 07/28/25 History
clonidine HCl 0.1 mg tablet 0.1 mg PO BID Blood Pressure 07/28/25 07/28/25 History
dapagliflozin propanediol 10 mg 10 mg PO DAILY Heart 07/28/25 07/28/25 History
tablet (Farxiga) Disease/Condition
dutasteride 0.5 mg capsule 0.5 mg PO DAILY Urinary Issue 07/28/25 07/28/25 History
irbesartan 150 mg tablet 150 mg PO HS Blood Pressure 07/28/25 07/28/25 History
irbesartan 75 mg tablet 75 mg PO DAILY Blood Pressure 07/28/25 07/28/25 History
tadalafil 5 mg tablet 5 mg PO DAILY Urinary Issue 07/28/25 07/28/25 History
tamsulosin 0.4 mg capsule 0.4 mg PO HS Urinary Issue 07/28/25 07/28/25 History
Review of Systems
-
History Source: Patient and Family ()
All other systems: Negative unless noted
Physical Exam
Vital Signs
Temp Pulse Resp BP Pulse Ox
98.4 F 64 16 155/80 97
07/29/25 11:00 07/29/25 11:00 07/29/25 11:00 07/29/25 11:00 07/29/25 11:00
GEN: No distress, awake, Ox3, sitting in chair
HEENT: supple, anicteric, mmm
LUNGS: Mildly decreased breath sounds, reproducible cough when attempting to take deep breath, otherwise CTA, no wheezes/rales; currently wearing 1 L of oxygen via nasal cannula
CV: Reg, S1/S2, 2/6 syst murmur loudest at right sternal border
ABD: soft, BS+, NT/ND
EXT: No edema, clubbing or cyanosis
NEURO: Gross non-focal
SKIN: No rash, warm, dry, pink
Lab Results
07/29/25 08:16
07/29/25 08:16
Impression / Plan
-
PCP: Pablo Garnica
Bakery Team Member: Mario Lainez
Pin Sorter And Bagger: Yordan Carpio
Impression:
Presented 07/27/2025 with generalized weakness, malaise, fevers, chill
Staphylococcus lugdunensis bacteremia on BC 07/27/2025
Leukocytosis
UTI w/ Gram-positive bacilli on urine culture
Concern for infective endocarditis of TAVR and/or pacemaker
Hyponatremia
Elevated procalcitonin
Aortic stenosis
s/p transcatheter aortic valve replacement #29 Toth [employer] Mariama 3 on 06/06/23 via right femoral artery route at [facility] Dr Hui
Complete heart block post TAVR
Status post [employer] dual chamber pacemaker 06/06/2023
Revision with upgrade to QUARRYING MANAGER pacemaker 08/10/2024 [facility] (Dr. Garcia)
Heart failure with recovered ejection fraction
Nonischemic cardiomyopathy
Paroxysmal atrial fibrillation
Chronic anticoagulation on Eliquis
Hyperlipidemia
Hypertension
Obstructive sleep apnea on CPAP
Thrombocytopenia
BPH, self catheterizes
Gout
Echo 05/15/2025 ([facility]): EF 55%. Mild concentric LVH. Well functioning TAVR/bioprosthetic AVR without AI. Normal RV size and function
Echo 07/29/2025: Technically difficult study. Lumason IV contrast utilized. EF 55 to 60%. Mild concentric LVH. Mild MR. Status post TAVR with peak/mean gradient 28/15 mmHg. Mild paravalvular regurgitation.
Plan:
Presented 07/27/2025 with generalized weakness, malaise, fevers, chill and leukocytosis.
Staphylococcus lugdunensis bacteremia on BC 07/27/2025
- Also found to have UTI w/ Gram-positive bacilli on urine culture. Patient self catheterizes. Patient currently on Farxiga. Consider discontinuation given concern for UTI but will defer to ID
- ID following with ongoing treatment with Ancef Q8
- Transthoracic echo 07/29/2025 showed preserved ejection fraction with stable TAVR gradients peak/mean 28/15 mmHg. no vegetation noted on TAVR by thought transthoracic echo
- ID requesting CHERRI given history of TAVR and QUARRYING MANAGER pacemaker.
- Will proceed with CHERRI on 07/29/2025. Keep n.p.o. after midnight. This was discussed with patient and his at bedside
- Per review of remote pacemaker transmission from 07/22/2025 pacemaker functioning appropriately with 11% A-fib burden, A-paced 75%, V paced 94% and QUARRYING MANAGER pacing 94%.
Nonischemic cardiomyopathy, recovered
- Patient has history of waxing and waning ejection fraction upon review of outpatient records. EF in 2023 was 30 to 35%. Improved on echo in 2024. Echo this admission demonstrates EF of 55-60%
- Continue GDMT with carvedilol, irbesartan. Patient intolerant to SAM inhibitor secondary to cough
- Patient not maintained on Lasix given recovery of ejection fraction
Paroxysmal atrial fibrillation with 11% A-fib burden noted on pacemaker interrogation 07/22/2025 performed as outpatient
- Would continue anticoagulation with Eliquis 5 mg twice a day
- Heart rate well-controlled on carvedilol.
Records were reviewed from Dr. Lainez as well as Dr. Carpio.
HPI 07/29/2025:
Patient is an 89-year-old male with past medical history significant for number 29 mm Toth MARIAMA TAVR on 06/06/2023 at [facility] complicated by complete heart block requiring [employer] permanent pacemaker, heart failure with recovered ejection
fraction, nonischemic cardiomyopathy (improved), paroxysmal atrial fibrillation on chronic anticoagulation with Eliquis, BPH for which he self caths, obstructive sleep apnea on CPAP, thrombocytopenia who [facility] on 07/27/2025 with
generalized weakness, malaise, fatigue fevers and chills. Patient also noted some mild shortness of breath associated with dry cough. Chest x-ray on admission unremarkable. EKG demonstrated a sensed V paced rhythm. Blood cultures were positive
for Staphylococcus lugdunensis bacteremia and urine culture positive for gram negative bacilli. Ongoing treatment with IV antibiotics. Cardiology has been consulted for CHERRI given concern of possible endocarditis of TAVR and/or QUARRYING MANAGER pacemaker.
At time of this evaluation patient resting comfortably in chair on 1 L of oxygen via nasal cannula. He complains of persistent dry cough which has been ongoing for about a week. He also complains of generalized weakness malaise and fatigue.
Currently denies fevers or chills. Denies chest pain or shortness of breath at rest but does get short of breath with some activity.
He reports he follows with Dr. Mario Lainez for his general cardiology care. He is followed by Dr. Yordan Carpio for electrophysiology.
Data Reviewed
-
EKG: Report Reviewed by me, Discussed with Physician, Discussed with Nurse, Discussed with Patient and Discussed with Family
Radiology: Report Reviewed by me, Discussed with Physician, Discussed with Nurse, Discussed with Patient and Discussed with Family
Ultrasound: Report Reviewed by me, Discussed with Physician, Discussed with Nurse, Discussed with Patient and Discussed with Family
Medical Tests (Nuc Med, Echo etc): Image Personally Visualized and interpreted, Report Reviewed by me, Discussed with Physician, Discussed with Nurse, Discussed with Patient and Discussed with Family
Labs: Labs Reviewed by me, Discussed with Physician, Discussed with Nurse, Discussed with Patient and Discussed with Family
Old Records: Reviewed
Total Time Spent with Patient (in minutes): 78
[2025-07-29 17:05] LABS: Glucose - Point of Care 89 mg/dl (70-99)
[2025-07-29] MEDS: FLOMAX 0.4 MG PO (20:36)
[2025-07-29 21:28] LABS: Glucose - Point of Care 106 mg/dl (70-99)
[2025-07-30 03:27] VITALS: BP 162/91
[2025-07-30] MEDS: ANCEF 10 IV ×3 (05:10→22:26)
[2025-07-30 06:24] LABS: Glucose - Point of Care 82 mg/dl (70-99)
[2025-07-30 07:59] VITALS: BP 169/76
--- NOTE | 2025-07-30 08:20 | PN.CDI ---
CDI
- -
CDI:
Physician Documentation Request
Admit Date: 07/28/25 01:36
Dear Doctor Nicolas,
Please review the following and provide your response in the progress notes.
Clinical Indicators:
- Patient admit for bacteremia and UTI
- 07/29 PN 'BPH with chronic urinary retention self-cath at home as needed (4-6 times a day)'
Please clarify the relationship between these conditions:
Yes, _UTI__ is related to/associated with/due to _self catheterization__.
No, _UTI__ is not related to/associated with/due to _self catheterization__ but it is due to . (Please specify)
Unable to determine
Use of terms such as suspected, likely, concern for, or probable (associated with a specific diagnosis that is being evaluated, monitored, or treated as if it exists) are acceptable and can be coded in the inpatient setting, when documented at the
time of discharge.
Thank you,
Nigel Teran RN
CDI Specialist
Please use your independent medical judgment in providing your response.
[2025-07-30] MEDS: COREG 3.125 MG PO ×2 (08:25→20:43)
[2025-07-30] MEDS: LIPITOR 80 MG PO (08:25)
[2025-07-30] MEDS: PROSCAR 5 MG PO (08:25)
[2025-07-30] MEDS: NOVOLOG FLEXPEN-LOW RESISTANCE SC ×3 (08:25→17:01)
[2025-07-30] MEDS: ELIQUIS 5 MG PO ×2 (08:26→20:43)
[2025-07-30] MEDS: DESENEX/MITRAZOL/ZEASORB 1 APPLIC TOPICAL ×2 (08:26→20:54)
[2025-07-30 08:39] LABS: Hematocrit 33.4 % (39.0-52.0); Hemoglobin 11.1 g/dL (13.0-18.0); Mean Corp Hgb Conc. 33.2 g/dL (33.0-37.0); Mean Corpuscular Volume 103.1 fL (80.0-94.0); Platelet Count 51 10^3/uL (130-400); Red Cell Dist. Width 16.8 % (11.5-14.5)
[2025-07-30 08:48] LABS: ALT (SGPT) 13 U/L (0-50); AST (SGOT) 30 U/L (17-59); Albumin 3.2 g/dl (3.5-5.0); Alkaline Phosphatase 47 U/L (38-126); Blood Urea Nitrogen 25 mg/dl (9-20); Calcium 8.4 mg/dl (8.4-10.2); Carbon Dioxide 24 mmol/L (22-30); Chloride 105 mmol/L (98-107); Estimated Creatinine Clearance 59 ml/min; Glucose 88 mg/dl (70-99); Potassium 3.7 mmol/L (3.5-5.1); Sodium 136 mmol/L (135-145); Total Protein 5.5 g/dl (6.3-8.2); eGFR > 60.00
[2025-07-30 10:42] LABS: Absolute Neutrophils -Man Diff 5.5 10^3/uL (1.4-6.5)
[2025-07-30 10:43] LABS: Acanthocytes 1+; Anisocytosis 1+; Hypochromasia 1+; Normal RBC Morphology No; Ovalocytes 1+; Platelets Checked Yes; Polychromasia 1+; Total Cells Counted 100
--- NOTE | 2025-07-30 10:46 | W.PN.HOSP.TC ---
Today's Communication/Plan
-
CHERRI
Assessment / Plan
Assessment / Plan
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
for UTI and possible acute bronchitis found bacteremia
A/P
#UTI, probably related to self-catheterization
#Bacteremia
Bcx with staph. lugdunensis
Repeat Bcx
ID consult - Ancef, will need extended course. Eventual PICC
TTE without signs of vegtations - CHERRI scheduled
Sepsis concern on admission, however rapidly resolved as not seen during next day eval
US renal without nephrolithiasis or hydronephrosis
Ucx - K.pneumonia sensitive to cephalosporins
Complicated by presence of PPM and TAVR
#Mild respiratory insufficiency
Wean off O2
#Acute bronchitis
DOxy
COVID-19 and influenza PCR neg
#CHronic thrombocytopenia
#Elevated bilirubin
no RUQ pain
Previously followed by wire coiner in [place] as per patient
follow direct bili, LDH and retics
Reccomend to cont following with established specialists
#DM type 2
patient reported most recent MMomp9p 6.5%
DM diet, accuchecks and insulin SS
Recheck HgbA1c
#Mild bibasilar crackes
LAsix PRN, no overt CHF and pulm congestion on XR
#Afib, unspecified
#BPH
#Essential HTN
# s/p TAVR
S/P ppm
cont straight cath - patient can feel when he needs it
cont home meds
DVT ppx on Eliquis
FUll code
I have spent at least 51 min reviewing chart, test results and providing direct patient care
Anticipated Discharge: > 48 hours
Subjective/Interval History
-
Date of Service: July 30, 2025
Objective Data
-
Labs:
Laboratory Results
07/30/25
07:48
WBC 8.1
Hgb 11.1 L
Hct 33.4 L
Plt Count 51 L
Sodium 136
Potassium 3.7
Chloride 105
Carbon Dioxide 24
BUN 25 H
Creatinine 0.9
Glucose 88
Calcium 8.4
Total Bilirubin 0.7
AST 30
ALT 13
Alkaline Phosphatase 47
Vital Signs:
Vital Signs
Temp Pulse Resp BP Pulse Ox
98.4 F 61 18 169/76 95
07/30/25 07:59 07/30/25 08:25 07/30/25 07:59 07/30/25 08:25 07/30/25 08:22
I&O
07/29/25 07/30/25 07/31/25
06:59 06:59 06:59
Intake Total 610 / 610
Output Total 1999
Balance -1390 / -1390 -1949 / -1949
Review of Systems
-
History Source: Patient
All other systems: Reviewed and negative
Physical Exam
-
General: No Apparent Distress
HEENT: Normocephalic
Respiratory: Clear to Auscultation
Cardiac: Regular Rhythm and Murmur
GI: Soft
Musculoskeletal: No Clubbing, No Cyanosis and No Edema
Neuro: Awake, Alert, Oriented and AO x 3
Psych: Calm
[2025-07-30 12:01] VITALS: BMI 31.1
[2025-07-30 12:33] LABS: Glucose - Point of Care 100 mg/dl (70-99)
[2025-07-30] MEDS: FARXIGA 10 MG PO (12:38)
[2025-07-30 12:39] VITALS: BP 174/89
--- NOTE | 2025-07-30 13:08 | W.PN.ID1 ---
Date of Service
Date of Service: July 30, 2025
Today's Communication
Await CHERRI report.
Continue cefazolin x 6 weeks.
Assessment / Plan
# Staphylococcus lugdunensis bacteremia x 2 sets
# Fever -resolved
# Leukocytosis -resolved
# hx bio-prosthetic valve and PPM
- Repeat blood cx's neg to date
- TTE no vege.
- CHERRI offical report pending.
- Continue cefazolin 2g IV q8 x 6 weeks through 09/07/25.
Follow weekly CBC/diff, CMP.
- Infusion sheet submitted to case briefer.
- Picc placement tomorrow if blood cx's remain neg.
# Conditions present on admission
Hypertension
TAVR t HUP
Atrial fibrillation
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
HFrEF
Thrombocytopenia
BPH
gout
Sleep apnea on CPAP
Appendectomy
Chief Complaint
-: Bacteremia
Subjective / Review of Systems
Had CHERRI this am.
Vital Signs / Physical Exam
Vital Signs
Vital Signs
Temp Pulse Resp BP Pulse Ox
97.6 F 61 16 174/89 98
07/30/25 12:39 07/30/25 12:39 07/30/25 12:39 07/30/25 12:39 07/30/25 12:39
Physical Exam
Constitutional: No Acute Distress and Comfortable
Cardiovascular: Regular Rate, S1/S2 and Other (LCW PPM site no erythema)
Pulmonary: Clear
Gastrointestinal: Soft, Non Tender and Non Distended
Genito-Urinary: Negative CVA Tenderness
Neurological: AO x 3
Objective Data
Lab Data
Lab Results
07/30/25 07:48
07/30/25 07:48
PT 18.8 Sec (11.4-14.6) H 07/27/25 21:14
INR 1.55 07/27/25 21:14
APTT 40.7 Sec (23.4-35.0) H 07/27/25 21:14
Estimated Creat Clear 59 ml/min 07/30/25 07:48
Lactic Acid Cancelled 07/28/25 01:15
Total Bilirubin 0.7 mg/dl (0.2-1.3) 07/30/25 07:48
AST 30 U/L (17-59) 07/30/25 07:48
ALT 13 U/L (0-50) 07/30/25 07:48
Alkaline Phosphatase 47 U/L (38-126) 07/30/25 07:48
Most recent labs reviewed.
Micro Results:
07/27/25 21:14 Blood Culture - Preliminary
Blood/Venous Positive culture in progress
Gram Stain - Preliminary
07/27/25 21:13 Blood Culture - Preliminary
Blood/Venous Staphylococcus lugdunensis
Gram Stain - Preliminary
07/29/25 08:46 Blood Culture - Preliminary
Blood/Venous No Growth in 24 hours- Final report to follow
07/27/25 21:14 Urine Culture - Final
Urine Klebsiella pneumoniae
07/29/25 08:16 Blood Culture - Preliminary
Blood/Venous No Growth in 24 hours- Final report to follow
07/28/25 05:52 MRSA Screen - Final
Nose No Methicillin Resistant Staphylococcus aureus isolated.
07/27/25 21:14 Influenza Types A & B (AYANNA) - Final
Nasal Swab Negative for Influenza A & B, NAAT
Negative results must be combined with clinical observations
and patient history.
Nucleic Acid Amplification test (NAAT)performed on the
[employer] platform.
07/27/25 CXR: No acute cardiopulmonary process.
[2025-07-30] MEDS: ANESTHETIC LOZENGE 1 LOZENGE PO (13:24)
[2025-07-30] MEDS: FLUSH (NSS) 1 FLUSH IV (13:25)
--- NOTE | 2025-07-30 14:57 | W.PN.CARDCBS ---
Today's Communication / Plan
-
No evidence of endocarditis on transesophageal echo
Consider uptitration of irbesartan or clonidine for hypertension
I have taken the liberty of ordering aldosterone and PRA levels with ratio in the event that hypertension is driven by mineralocorticoid excess
We will sign off, please call if questions
Impression / Plan
-
PCP: Pablo Garnica
Right Of Way Manager: Mario Lainez
Dipper Machine Operator: Yordan Carpio
Impression:
Presented 07/27/2025 with generalized weakness, malaise, fevers, chill
Staphylococcus lugdunensis bacteremia on BC 07/27/2025
Leukocytosis
UTI w/ Gram-positive bacilli on urine culture
Concern for infective endocarditis of TAVR and/or pacemaker
Hyponatremia
Elevated procalcitonin
Aortic stenosis
s/p transcatheter aortic valve replacement #29 Toth [employer] Mariama 3 on 06/06/23 via right femoral artery route at [facility] Dr Hui
Complete heart block post TAVR
Status post [employer] dual chamber pacemaker 06/06/2023
Revision with upgrade to ROPE LAYING MACHINE OPERATOR pacemaker 08/10/2024 [facility] (Dr. Garcia)
Heart failure with recovered ejection fraction
Nonischemic cardiomyopathy
Paroxysmal atrial fibrillation
Chronic anticoagulation on Eliquis
Hyperlipidemia
Hypertension
Obstructive sleep apnea on CPAP
Thrombocytopenia
BPH, self catheterizes
Gout
Echo 05/15/2025 ([facility]): EF 55%. Mild concentric LVH. Well functioning TAVR/bioprosthetic AVR without AI. Normal RV size and function
Echo 07/29/2025: Technically difficult study. Lumason IV contrast utilized. EF 55 to 60%. Mild concentric LVH. Mild MR. Status post TAVR with peak/mean gradient 28/15 mmHg. Mild paravalvular regurgitation.
Plan:
Despite bacteremia, overall stable from a cardiac standpoint.
No evidence of endocarditis based on transesophageal echocardiography.
He is somewhat hypertensive, could consider uptitration of clonidine, irbesartan.
It is interesting that on high-dose ARB he has a potassium of 3.7, could easily have mineralocorticoid excess driving hypertension and might be a good candidate for low-dose spironolactone. I have taken liberty of ordering aldosterone and PRA
levels with ratio. However, will defer to his primary cardiologists.
He is anticoagulated with 11% atrial fibrillation burden based on his device. Nothing is required.
We will sign off, please call if questions.
[facility] 07/29/2025:
Patient is an 89-year-old male with past medical history significant for number 29 mm Toth MARIAMA TAVR on 06/06/2023 at [facility] complicated by complete heart block requiring [employer] permanent pacemaker, heart failure with recovered ejection
fraction, nonischemic cardiomyopathy (improved), paroxysmal atrial fibrillation on chronic anticoagulation with Eliquis, BPH for which he self caths, obstructive sleep apnea on CPAP, thrombocytopenia who presented to [facility] on 07/27/2025 with
generalized weakness, malaise, fatigue fevers and chills. Patient also noted some mild shortness of breath associated with dry cough. Chest x-ray on admission unremarkable. EKG demonstrated a sensed V paced rhythm. Blood cultures were positive
for Staphylococcus lugdunensis bacteremia and urine culture positive for gram negative bacilli. Ongoing treatment with IV antibiotics. Cardiology has been consulted for [facility]ER[facility] given concern of possible endocarditis of TAVR and/or ROPE LAYING MACHINE OPERATOR pacemaker.
At time of this evaluation patient resting comfortably in chair on 1 L of oxygen via nasal cannula. He complains of persistent dry cough which has been ongoing for about a week. He also complains of generalized weakness malaise and fatigue.
Currently denies fevers or chills. Denies chest pain or shortness of breath at rest but does get short of breath with some activity.
He reports he follows with Dr. Mario Lainez for his general cardiology care. He is followed by Dr. Yordan Carpio for electrophysiology.
Progress Note - Right Of Way Manager
Subjective
Date of Service: July 30, 2025:
89-year-old man with transcatheter aortic valve admitted with staff bacteremia and transesophageal echo requested
PMH/PSH: JUANI, heart block and Joiner pacemaker, paroxysmal atrial fibrillation, ROPE LAYING MACHINE OPERATOR pacemaker for heart failure with improved EF, nonischemic cardiomyopathy, hypertension, hyperlipidemia, sleep apnea, thrombocytopenia, bladder outlet obstruction,
self catheterizes, gout
Medications: Apixaban 5 mg twice daily, atorvastatin 80 mg daily, Farxiga 10 mg a day, Proscar, Flomax, insulin, carvedilol 3.125 twice daily, cefazolin
174/85, pulse 61, respiratory rate 16, afebrile, no distress post transesophageal echo, lungs are clear, soft systolic murmur at base, abdomen benign extremities without clubbing cyanosis or edema
Hemoglobin 11.1, 9% bands, BUN and creatinine 25 and 0.9
Echo: EF 55-60%, mild LVH, peak/mean JUANI gradients 28/15 mmHg with mild AI, mild mitral regurgitation
CHERRI 07/30/2025: No evidence of vegetation
Objective
Labs:
07/30/25 07:48
07/30/25 07:48
Labs
Hgb 11.1 g/dL (13.0-18.0) L 07/30/25 07:48
Hct 33.4 % (39.0-52.0) L 07/30/25 07:48
Plt Count 51 10^3/uL (130-400) L 07/30/25 07:48
PT 18.8 Sec (11.4-14.6) H 07/27/25 21:14
INR 1.55 07/27/25 21:14
APTT 40.7 Sec (23.4-35.0) H 07/27/25 21:14
Sodium 136 mmol/L (135-145) 07/30/25 07:48
Potassium 3.7 mmol/L (3.5-5.1) 07/30/25 07:48
BUN 25 mg/dl (9-20) H 07/30/25 07:48
Creatinine 0.9 mg/dL (0.7-1.3) 07/30/25 07:48
Glucose 88 mg/dl (70-99) 07/30/25 07:48
Vital Signs and I&O:
Vital Signs
Temp Pulse Resp BP Pulse Ox
36.4 C 61 16 174/89 98
07/30/25 12:39 07/30/25 12:39 07/30/25 12:39 07/30/25 12:39 07/30/25 12:39
Vital Signs
Temp Pulse Resp BP Pulse Ox
36.4 C 61 16 174/89 98
07/30/25 12:39 07/30/25 12:39 07/30/25 12:39 07/30/25 12:39 07/30/25 12:39
Intake & Output
07/28/25 07/29/25 07/30/25 07/31/25
07:59 07:59 07:59 07:59
Intake Total 610 / 610
Output Total 400 / 400 1600 / 1600 1949 / 1950 550 / 550
Balance -400 / -400 -990 / -990 -1950 / -1950 -550 / -550
Physical Exam
Physical Exam
See above
[2025-07-30 15:38] VITALS: BP 128/85
--- NOTE | 2025-07-30 15:40 | PTCARENOTE ---
Pt AAO x3, PATEL slowly; able to transfer to chair/stretcher with assist x2/cane; sl unsteady w/OOB activity. VSS. Telemetry: A, V and AV paced rhythm. On room air- pulse ox94%, pt with (+) GRANADOS; occ cough- clear mucus. Pt c/o 'sore throat' since
return from [facility]; good effect with Cepacol lozenge. Abd large, soft, di PO well. Pt bladder scanned/straight- cathed per protocol for mod amts felicita urine. Resting in bed at present. family at bedside. Will continue to monitor.
[2025-07-30 16:57] LABS: Glucose - Point of Care 133 mg/dl (70-99)
[2025-07-30 17:12] VITALS: BP 128/85; PULSE 61; O2SAT 94
[2025-07-30 19:55] VITALS: BP 172/87
[2025-07-30] MEDS: FLOMAX 0.4 MG PO (20:43)
[2025-07-30 21:31] LABS: Glucose - Point of Care 109 mg/dl (70-99)
[2025-07-30] MEDS: CATAPRES 0.1 MG PO (23:35)
[2025-07-31] VITALS (7 sets, daily range): BP systolic 145–182; BP diastolic 50–90; PULSE 61; O2SAT 98
[2025-07-31] MEDS: ANCEF 10 IV ×3 (06:05→21:11)
--- NOTE | 2025-07-31 06:09 | PTCARENOTE ---
Pt refused bladder scan and cath this AM. Informed the pt of policy and procedure rationale for emptying the bladder. pt stated 'Well I'll write them a letter about their policy and procedure'. No s/s of distress assessed. Will continue to monitor.
[2025-07-31 06:56] LABS: Glucose - Point of Care 91 mg/dl (70-99)
[2025-07-31] MEDS: NOVOLOG FLEXPEN-LOW RESISTANCE SC ×3 (06:56→16:36)
[2025-07-31] MEDS: PROSCAR 5 MG PO (08:01)
[2025-07-31] MEDS: CATAPRES 0.1 MG PO ×2 (08:01→21:08)
[2025-07-31] MEDS: ELIQUIS 5 MG PO ×2 (08:01→21:09)
[2025-07-31] MEDS: COREG 3.125 MG PO ×2 (08:01→21:07)
[2025-07-31] MEDS: FARXIGA 10 MG PO (08:01)
[2025-07-31] MEDS: LIPITOR 80 MG PO (08:01)
[2025-07-31] MEDS: DESENEX/MITRAZOL/ZEASORB 1 APPLIC TOPICAL ×2 (08:03→21:09)
--- NOTE | 2025-07-31 09:41 | CM ---
Addendum entered by Chloe Licona 07/31/25 13:23:
Received insurance benefits information from Lindsey.
Updated patient, spouse and son at bedside. Informed that patient does not have a drug co pay, covered for supplies at 80% after $250 deductible is met. 100% coverage after his $1,000 OOP is met w/ [employer] secondary insurance. CM informed patient if he
ends up owing anything for supplies, [facility] will bill out. Spouse confirmed she can assist w/ the teaching. Per Lindsey, if patient is ready to d/c tomorrow, abx and supplies can be delivered tomorrow for his afternoon dose and that [facility] can complete
the teaching in the home.
PICC placement pending
Plan: D/c home w/ [facility] and [facility]. Hopefully tomorrow
Addendum entered by Chloe Licona 07/31/25 09:59:
CM was informed that [facility] does not have IV nursing. Updated patient, agreeable to utilize [facility]. Referral sent.
Original Note:
Chart reviewed. Per ID, patient will need continuous IV abx at d/c. Last day 09/07, script received.
Met w/ patient bedside, aware of abx needs for the next 6 weeks. CM reviewed home infusion companies, patient chose [facility]. CM explained process for home infusion set up. Patient was made aware administration is expected to be done
independently in the home. Patient stated his will be the one administering the medication. CM discussed therapy recommendation of home PT, patient prefers [facility] as he used them before.
Script and clinicals faxed to [facility] ([phone]). Spoke w/ Lindsey, provided information, Lindsey will call CM back after reviewing patient's insurance benefits.
PICC/Midline placement hasn't been ordered yet at this time. Per ID note, PICC placement today if blood cx's remain neg.
Plan: Home w/ [facility] and home infusion w/ [facility]
--- NOTE | 2025-07-31 11:38 | W.PN.HOSP.TC ---
Today's Communication/Plan
-
PICC today as Bcx remains neg
CM for home infusions
Assessment / Plan
Assessment / Plan
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
for UTI and possible acute bronchitis found bacteremia. TTE and [facility]ERRI showed no concern for valvular or PPM lead vegetations. Repeated Bcx NTD. ID recommended 6 weeks Ancef IV.
A/P
#UTI, probably related to self-catheterization
#Bacteremia
Bcx with staph. lugdunensis
Repeat Bcx
ID consult - Ancef, will need extended course. Eventual PICC
TTE without signs of vegtations - [facility] scheduled
Sepsis concern on admission, however rapidly resolved as not seen during next day eval
US renal without nephrolithiasis or hydronephrosis
Ucx - K.pneumonia sensitive to cephalosporins
Complicated by presence of PPM and TAVR
#Mild respiratory insufficiency
Wean off O2
#Acute bronchitis
DOxy
COVID-19 and influenza PCR neg
#CHronic thrombocytopenia
#Elevated bilirubin
no RUQ pain
Previously followed by print line inspector in [place] as per patient
follow direct bili, LDH and retics
Reccomend to cont following with established specialists
#DM type 2
patient reported most recent [id number] 6.5%
DM diet, accuchecks and insulin SS
Recheck HgbA1c
#Mild bibasilar crackes
LAsix PRN, no overt CHF and pulm congestion on XR
#Afib, unspecified
#BPH
#Malignant HTN
# s/p TAVR
S/P ppm
cont straight cath - patient can feel when he needs it
cont home meds
Card checked for Renin/Aldosterone - outpatient follow up
DVT ppx on Eliquis
FUll code
I have spent at least 36 min reviewing chart, test results and providing direct patient care
Anticipated Discharge: Within 24 hours
Subjective/Interval History
-
Date of Service: July 31, 2025
Objective Data
-
Vital Signs:
Vital Signs
Temp Pulse Resp BP Pulse Ox
97.8 F 65 16 158/82 96
07/31/25 07:00 07/31/25 08:01 07/31/25 07:00 07/31/25 08:01 07/31/25 10:38
I&O
07/30/25 07/31/25 08/01/25
06:59 06:59 06:59
Intake Total 600 / 600
Output Total 1949 1150 / 1150
Balance -1950 / -1950 -550 / -550
Review of Systems
-
History Source: Patient
All other systems: Reviewed and negative
Physical Exam
-
General: No Apparent Distress
Neuro: Awake, Alert, Oriented and AO x 3
Psych: Calm
[2025-07-31 12:14] LABS: Glucose - Point of Care 142 mg/dl (70-99)
--- NOTE | 2025-07-31 12:15 | W.PN.ID1 ---
Date of Service
Date of Service: July 31, 2025
Today's Communication
Continue cefazolin x 6 weeks.
Assessment / Plan
# Staphylococcus lugdunensis bacteremia x 2 sets
# Fever -resolved
# Leukocytosis -resolved
# hx bio-prosthetic valve and PPM
- Repeat blood cx's neg to date
- TTE no vege.
- CHERRI no vege.
- Continue cefazolin 2g IV q8 x 6 weeks through 09/07/25.
Follow weekly CBC/diff, CMP.
- Infusion sheet submitted to case planner 07/30.
- Picc placement
# Conditions present on admission
Hypertension
TAVR t HUP
Atrial fibrillation
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
HFrEF
Thrombocytopenia
BPH
gout
Sleep apnea on CPAP
Appendectomy
Chief Complaint
-: Bacteremia
Subjective / Review of Systems
Feels better.
Vital Signs / Physical Exam
Vital Signs
Vital Signs
Temp Pulse Resp BP Pulse Ox
97.8 F 65 16 158/82 96
07/31/25 07:00 07/31/25 08:01 07/31/25 07:00 07/31/25 08:01 07/31/25 10:38
Physical Exam
Constitutional: No Acute Distress and Comfortable
Cardiovascular: Regular Rate, S1/S2 and Other (LCW PPM site no erythema)
Pulmonary: Clear
Gastrointestinal: Soft, Non Tender and Non Distended
Genito-Urinary: Negative CVA Tenderness
Neurological: AO x 3
Objective Data
Lab Data
Lab Results
07/30/25 07:48
07/30/25 07:48
PT 18.8 Sec (11.4-14.6) H 07/27/25 21:14
INR 1.55 07/27/25 21:14
APTT 40.7 Sec (23.4-35.0) H 07/27/25 21:14
Estimated Creat Clear 59 ml/min 07/30/25 07:48
Lactic Acid Cancelled 07/28/25 01:15
Total Bilirubin 0.7 mg/dl (0.2-1.3) 07/30/25 07:48
AST 30 U/L (17-59) 07/30/25 07:48
ALT 13 U/L (0-50) 07/30/25 07:48
Alkaline Phosphatase 47 U/L (38-126) 07/30/25 07:48
Most recent labs reviewed.
Micro Results:
07/29/25 08:46 Blood Culture - Preliminary
Blood/Venous No Growth in 48 hours- Final report to follow
07/29/25 08:16 Blood Culture - Preliminary
Blood/Venous No Growth in 48 hours- Final report to follow
07/27/25 21:13 Blood Culture - Final
Blood/Venous Staphylococcus lugdunensis
Gram Stain - Final
07/27/25 21:14 Blood Culture - Final
Blood/Venous Staphylococcus lugdunensis
Gram Stain - Final
07/27/25 21:14 Urine Culture - Final
Urine Klebsiella pneumoniae
07/28/25 05:52 MRSA Screen - Final
Nose No Methicillin Resistant Staphylococcus aureus isolated.
07/27/25 21:14 Influenza Types A & B (AYANNA) - Final
Nasal Swab Negative for Influenza A & B, NAAT
Negative results must be combined with clinical observations
and patient history.
Nucleic Acid Amplification test (NAAT)performed on the
[employer] platform.
07/27/25 CXR: No acute cardiopulmonary process.
[2025-07-31] MEDS: FLUSH (NSS) 1 FLUSH IV (13:40)
[2025-07-31 16:33] LABS: Glucose - Point of Care 113 mg/dl (70-99)
[2025-07-31] MEDS: FLOMAX 0.4 MG PO (21:08)
[2025-07-31 21:23] LABS: Glucose - Point of Care 135 mg/dl (70-99)
[2025-08-01] MEDS: ANCEF 10 IV (06:07)
--- NOTE | 2025-08-01 06:40 | PTCARENOTE ---
pt self cathing per order. pt straight cathed x1 last night, put out 400 mL.
[2025-08-01 07:40] VITALS: BP 170/90
[2025-08-01] MEDS: COREG 3.125 MG PO (07:52)
[2025-08-01] MEDS: LIPITOR 80 MG PO (07:52)
[2025-08-01 07:53] LABS: Glucose - Point of Care 96 mg/dl (70-99)
[2025-08-01] MEDS: CATAPRES 0.1 MG PO (07:54)
[2025-08-01] MEDS: PROSCAR 5 MG PO (07:54)
[2025-08-01] MEDS: ELIQUIS 5 MG PO (07:54)
[2025-08-01] MEDS: FARXIGA 10 MG PO (07:54)
[2025-08-01] MEDS: NOVOLOG FLEXPEN-LOW RESISTANCE SC (07:55)
[2025-08-01] MEDS: DESENEX/MITRAZOL/ZEASORB 1 APPLIC TOPICAL (07:57)
[2025-08-01 09:41] VITALS: BP 145/71
--- NOTE | 2025-08-01 10:17 | W.PN.HOSP.TC ---
Addendum entered and electronically signed by Hernán Valenzuela MD 08/01/25 11:06:
Please dont use billing under this note, use discharge billing instead
Original Note:
Today's Communication/Plan
-
medcially stable for d/c as soon as home infusions established - CM informed
Assessment / Plan
Assessment / Plan
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
for UTI and possible acute bronchitis found bacteremia. TTE and CHERRI showed no concern for valvular or PPM lead vegetations. Repeated Bcx NTD. ID recommended 6 weeks Ancef IV. CM working on home infusion
A/P
#UTI, probably related to self-catheterization
#Bacteremia
Bcx with staph. lugdunensis
Repeat Bcx
ID consult - Ancef, will need extended course. Eventual PICC
TTE without signs of vegetations - [facility] scheduled
Sepsis concern on admission, however rapidly resolved as not seen during next day eval
US renal without nephrolithiasis or hydronephrosis
Ucx - K.pneumonia sensitive to cephalosporins
Complicated by presence of PPM and TAVR
#Mild respiratory insufficiency
Wean off O2
#Acute bronchitis
DOxy
COVID-19 and influenza PCR neg
#CHronic thrombocytopenia
#Elevated bilirubin
no RUQ pain
Previously followed by medical record consultant in [place] as per patient
follow direct bili, LDH and retics
Reccomend to cont following with established specialists
#DM type 2
patient reported most recent [id number] 6.5%
DM diet, accuchecks and insulin SS
Recheck HgbA1c
#Mild bibasilar crackes
LAsix PRN, no overt CHF and pulm congestion on XR
#Afib, unspecified
#BPH
#Malignant HTN
# s/p TAVR
S/P ppm
cont straight cath - patient can feel when he needs it
cont home meds
Card checked for Renin/Aldosterone - outpatient follow up
DVT ppx on Eliquis
FUll code
I have spent at least 36 min reviewing chart, test results and providing direct patient care
Anticipated Discharge: Within 24 hours
Subjective/Interval History
-
Date of Service: August 01, 2025
Objective Data
-
Vital Signs:
Vital Signs
Temp Pulse Resp BP Pulse Ox
97.7 F 62 18 145/71 98
08/01/25 07:40 08/01/25 09:41 08/01/25 07:40 08/01/25 09:41 08/01/25 07:40
I&O
07/31/25 08/01/25 08/02/25
06:59 06:59 06:59
Intake Total 600 / 600 600 / 600
Output Total 1150 / 1150 400 / 400
Balance -550 / -550 200 / 200
Review of Systems
-
History Source: Patient
All other systems: Reviewed and negative
Physical Exam
-
General: No Apparent Distress
HEENT: Normocephalic
Neuro: Awake, Alert, Oriented and AO x 3
Psych: Calm
--- NOTE | 2025-08-01 10:46 | CM ---
Addendum entered by Chloe Licona 08/01/25 11:23:
PT will issue patient a RW before d/c. Hospitalist will provide rx
Original Note:
Plan is for patient to d/c home today
Faxed PICC report, CXR and med list to [facility]. Plan to deliver abx and supplies between 1-2 pm today. Confirmed [facility] nursing will complete teaching w/ patient and spouse at home between 1-2:30 but will call patient to confirm he is home.
Patient stated his son will transport him home at 12 noon. IMM verbally reviewed, copy provided, copy on chart
Updated hospitalist
[facility]

[facility]

Plan: D/c home today w/ [facility] and [facility]
--- NOTE | 2025-08-01 11:04 | W.DCSUMMARY ---
Discharge Summary
Discharge Data
Date of Admission: 07/28/25
Date of Discharge: 08/01/25
-
Pending Results: Yes
Additional Pending Results:
aldosterone, renin levels - follow up result with your cellophaner
Hospital Course
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
for UTI and possible acute bronchitis found bacteremia. TTE and CHERRI showed no concern for valvular or PPM lead vegetations. Repeated Bcx NTD. ID recommended 6 weeks Ancef IV through 09/07/25. . CM established home infusions. weekly CBC/diff, CMP.
Medcially stable to be d/c home
I have spent at least 36 min reviewing chart, test results and providing direct patient care
Patient was managed for:
#Bacteremia
#UTI
#Acute bronchitis
#CHronic thrombocytopenia
#Elevated bilirubin
#DM type 2
#Mild bibasilar crackes
#Afib, unspecified
#BPH
#Malignant HTN
# s/p TAVR
Discharge Plan
-
Patient Disposition: Home with Home Care
Discharge Diagnosis/Procedures: Bacteremia
Diet: Diabetic, Carb Controlled
Activity: As tolerated
Blood Work: weekly CBC/diff, CMP
Activity Restrictions/Additional Instructions:
aldosterone, renin levels - follow up result with your cellophaner
Referrals:
UNKNOWN - PT DOES,NOT KNOW [Family Provider]
Prescriptions:
New
cefazolin 10 gram Recon Soln
2 g IV Q8H Qty: 0 0RF
Continued
atorvastatin 80 mg tablet
80 mg PO DAILY
clonidine HCl 0.1 mg tablet
0.1 mg PO BID
carvedilol 6.25 mg tablet
6.25 mg PO BID
tamsulosin 0.4 mg capsule
0.4 mg PO HS
irbesartan 75 mg tablet
75 mg PO DAILY
irbesartan 150 mg tablet
150 mg PO HS
dutasteride 0.5 mg capsule
0.5 mg PO DAILY
tadalafil 5 mg tablet
5 mg PO DAILY
Eliquis 5 mg tablet
5 mg PO BID
dapagliflozin propanediol [Farxiga] 10 mg tablet
10 mg PO DAILY
Discharge Orders:
Discharge Patient (As Directed); Ordered 08/01/25
Ordered By: Hernán Valenzuela
Discharge Date and Time
Print Language: UKRAINIAN
--- NOTE | 2025-08-01 11:28 | W.PN.ID1 ---
Date of Service
Date of Service: August 01, 2025
Today's Communication
Follow-up with me in 4 weeks.
Assessment / Plan
# Staphylococcus lugdunensis bacteremia x 2 sets
# Fever -resolved
# Leukocytosis -resolved
# hx bio-prosthetic valve and PPM
- Repeat blood cx's neg to date
- TTE no vege.
- CHERRI no vege.
- Continue cefazolin 2g IV q8 x 6 weeks through 09/07/25.
Follow weekly CBC/diff, CMP.
- Infusion sheet submitted to rehabilitation case coordinator 07/30.
-DC home.
- Follow-up with me in 4 weeks.
# Conditions present on admission
Hypertension
TAVR t HUP
Atrial fibrillation
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
HFrEF
Thrombocytopenia
BPH
gout
Sleep apnea on CPAP
Appendectomy
Chief Complaint
-: Bacteremia
Subjective / Review of Systems
Feels well.
Vital Signs / Physical Exam
Vital Signs
Vital Signs
Temp Pulse Resp BP Pulse Ox
97.7 F 62 18 145/71 98
08/01/25 07:40 08/01/25 09:41 08/01/25 07:40 08/01/25 09:41 08/01/25 07:40
Physical Exam
Constitutional: No Acute Distress and Comfortable
Cardiovascular: Regular Rate, S1/S2 and Other (LCW PPM site no erythema)
Pulmonary: Clear
Gastrointestinal: Soft, Non Tender and Non Distended
Genito-Urinary: Negative CVA Tenderness
Neurological: AO x 3
Lines: PICC (RUE blood strike-through on gauze)
Objective Data
Lab Data
Lab Results
07/30/25 07:48
07/30/25 07:48
PT 18.8 Sec (11.4-14.6) H 07/27/25 21:14
INR 1.55 07/27/25 21:14
APTT 40.7 Sec (23.4-35.0) H 07/27/25 21:14
Estimated Creat Clear 59 ml/min 07/30/25 07:48
Lactic Acid Cancelled 07/28/25 01:15
Total Bilirubin 0.7 mg/dl (0.2-1.3) 07/30/25 07:48
AST 30 U/L (17-59) 07/30/25 07:48
ALT 13 U/L (0-50) 07/30/25 07:48
Alkaline Phosphatase 47 U/L (38-126) 07/30/25 07:48
Most recent labs reviewed.
Micro Results:
07/29/25 08:46 Blood Culture - Preliminary
Blood/Venous No Growth in 72 hours- Final report to follow
07/29/25 08:16 Blood Culture - Preliminary
Blood/Venous No Growth in 72 hours- Final report to follow
07/27/25 21:13 Blood Culture - Final
Blood/Venous Staphylococcus lugdunensis
Gram Stain - Final
07/27/25 21:14 Blood Culture - Final
Blood/Venous Staphylococcus lugdunensis
Gram Stain - Final
07/27/25 21:14 Urine Culture - Final
Urine Klebsiella pneumoniae
07/28/25 05:52 MRSA Screen - Final
Nose No Methicillin Resistant Staphylococcus aureus isolated.
07/27/25 21:14 Influenza Types A & B (AYANNA) - Final
Nasal Swab Negative for Influenza A & B, NAAT
Negative results must be combined with clinical observations
and patient history.
Nucleic Acid Amplification test (NAAT)performed on the
[employer] platform.
07/27/25 CXR: No acute cardiopulmonary process.
== END 2025-08-01 12:00 | disposition home health service (06) | DRG 699 ==
LOC: 4 EAST ACU 01:36
PROVIDERS: Internal Medicine; Internal Medicine Cardiovascular Disease; ADMITTING PHYSICIAN Internal Medicine; ATTENDING PHYSICIAN Internal Medicine; CONSULT PHYSICIAN Internal Medicine Infectious Disease; EMERGENCY PHYSICIAN Emergency Medicine; OTHER PHYSICIAN Internal Medicine Interventional Cardiology
PROC: B24BZZ4 Ultrasonography of Heart with Aorta, Transesophageal (ICD-10-PCS; 2025-07-30)
PROC: 02HV33Z Insertion of Infusion Device into Superior Vena Cava, Percutaneous Approach (ICD-10-PCS; 2025-07-31)
DX: T83.518A Infection and inflammatory reaction due to other urinary catheter, initial encounter (principal); E87.1 Hypo-osmolality and hyponatremia; N39.0 Urinary tract infection, site not specified; I50.42 Chronic combined systolic (congestive) and diastolic (congestive) heart failure; I42.8 Other cardiomyopathies; I48.92 Unspecified atrial flutter; R78.81 Bacteremia; I48.0 Paroxysmal atrial fibrillation; I11.0 Hypertensive heart disease with heart failure; E78.00 Pure hypercholesterolemia, unspecified; R09.02 Hypoxemia; N40.1 Benign prostatic hyperplasia with lower urinary tract symptoms; R33.8 Other retention of urine; D69.6 Thrombocytopenia, unspecified; M10.9 Gout, unspecified; J20.9 Acute bronchitis, unspecified; B95.7 Other staphylococcus as the cause of diseases classified elsewhere; E11.9 Type 2 diabetes mellitus without complications; R06.89 Other abnormalities of breathing; G47.33 Obstructive sleep apnea (adult) (pediatric); B96.1 Klebsiella pneumoniae [K. pneumoniae] as the cause of diseases classified elsewhere; Y84.6 Urinary catheterization as the cause of abnormal reaction of the patient, or of later complication, without mention of misadventure at the time of the procedure; Y92.9 Unspecified place or not applicable; Z90.49 Acquired absence of other specified parts of digestive tract; Z79.84 Long term (current) use of oral hypoglycemic drugs; Z95.0 Presence of cardiac pacemaker; Z79.01 Long term (current) use of anticoagulants; Z95.3 Presence of xenogenic heart valve; Z11.52 Encounter for screening for COVID-19; Z82.49 Family history of ischemic heart disease and other diseases of the circulatory system
CPT/HCPCS: 51701; 51798; 71045; 71046; 76770; 80053; 81003; 81015; 82088; 82248; 82607; 82746; 82962; 83036; 83605; 83615; 84145; 84244; 85025; 85027; 85045; 85610; 85730; 87040; 87070; 87077; 87086; 87147; 87154; 87186; 87205; 87502; 87811; 92610; 93005; 93306; 93312; 93320; 93325; 94760; 96361; 96365; 96375; 97116; 97163; 97166; 97530; 97535; 99285; Q9950

== ENCOUNTER 2025-08-02 15:30 | Emergency (ER) | payer MEDICARE, OTHER, SELFPAY ==
[2025-08-02 15:32] VITALS: BP 150/72
[2025-08-02 18:41] VITALS: BMI 29.9
[2025-08-02 18:44] VITALS: BP 161/74
[2025-08-02] MEDS: ANCEF 10 IV (20:18)
--- NOTE | 2025-08-02 20:21 | ED.GENMED ---
History of Present Illness
General
Chief Complaint: Catheter/Tube Problem
Source: patient and spouse
Time Seen by Provider: 08/02/25 17:53
History of Present Illness
History of Present Illness:
Note:
CHIEF COMPLAINT(S)
Issues with a peripherally inserted central catheter (PICC) line, including bleeding and concerns about its function for intravenous antibiotic administration.
HISTORY OF PRESENT ILLNESS
The patient is an 89-year-old male with a recent hospitalization where a PICC line was placed for long-term intravenous antibiotic therapy to treat an infection related to concerns with a heart valve. The patient was discharged but returned with
complaints of bleeding at the PICC line site on his right upper extremity. The patient reports that he is receiving intravenous antibiotics three times a day, with the last dose administered at 7 a.m. However, he missed a scheduled dose today due to
concerns with the line. The patient is on blood thinners, which complicates management of the bleeding and calls for careful consideration of interventions. The patient reported that while being lifted by staff previously, the site was possibly
traumatized, potentially causing the bleeding. Additionally, there were discussions about using saline instead of heparin for vessel liner due to his anticoagulation therapy. The patient denies eating since intravenous administration is required
for his antibiotics.
ADDITIONAL HISTORY OBTAINED FROM SOURCES OTHER THAN THE PATIENT
A family member, the patients axivpjrj-il-tar who is a physical therapist, contributed by discussing the options of using saline instead of heparin to maintain the PICC line due to the patients anticoagulant therapy.
PHYSICAL EXAM
General: Alert, no acute distress.
Skin: Normal warmth and dryness. Right upper extremity has a small amount of oozing blood at the PICC line site with minor ecchymosis and no significant hematoma.
Head: Normocephalic, atraumatic.
Neck: Supple, trachea midline.
Eyes, Ears, Nose, Mouth, and Throat: Oral mucosa moist.
Cardiovascular: Normal peripheral perfusion.
Respiratory: Respirations are non-labored.
Gastrointestinal: Abdomen nondistended.
Back: Normal range of motion, Normal alignment.
Musculoskeletal: Normal range of motion, normal strength.
Neurological: Alert and oriented to person, place, time, and situation; No focal neurological deficit observed.
Psychiatric: Cooperative, appropriate mood & affect.
PLAN
1. Have the PICC nurse evaluate the line to ensure proper function and address any bleeding or clotting concerns.
2. Consider applying a stitch or dressing to control bleeding around the line site.
3. Maintain the current dressing and have nursing staff monitor the site regularly.
4. Continue efforts to manage the patients antibiotic regimen to ensure doses are not missed.
5. Collaborative planning with nursing for potential adjustments to the PICC vessel liner protocol given the patients use of anticoagulants.
DIFFERENTIAL DIAGNOSIS
The Differential Diagnosis includes, in no particular order and is not limited to:
1. PICC line-associated bleeding due to anticoagulation
2. Mechanical trauma to the PICC line site
3. Infection of the PICC line site
4. Thrombosis associated with the PICC line
5. Hematoma formation at the PICC line site
6. Drug reaction to blood thinners or other medications
7. Valve-related infection exacerbation
8. Insufficient anticoagulation management
9. Inadequate vessel liner or blockage
10. Incomplete antibiotic coverage or dosing adjustments needed
Disposition:
SUMMARY OF ENCOUNTER
The 89-year-old male patient presented to the emergency department with bleeding around a peripherally inserted central catheter (PICC) line, which was being used for administering intravenous antibiotics at home. The PICC line was evaluated by the
PICC team, and a hemostatic agent, GelFoam, was applied to manage the bleeding. After reassessment, the dressing was found to be clean and intact with no further bleeding, eliminating the need for a stitch. The patient received his dose of
antibiotics while in the emergency department and is set to continue his antibiotic therapy at home.
DISPOSITION
Discharge.
PLAN
1. Discharge the patient with instructions to continue intravenous antibiotics at home.
2. Educate the patient and family on monitoring the PICC line site for any signs of bleeding or infection.
3. Schedule regular follow-up with the home healthcare team to ensure proper monitoring and maintenance of the PICC line.
FOLLOW-UP INSTRUCTIONS
Please call the office immediately to schedule a follow-up visit with your primary care provider to ensure ongoing management of your antibiotic therapy and PICC vessel liner.
MEDICAL DECISION MAKING
-Complexity of Data Reviewed: Chronic conditions affecting care [infection related to heart valve, need for long-term IV antibiotic therapy, anticoagulant therapy]. Include DDx list: PICC line-associated bleeding due to anticoagulation, mechanical
trauma to the PICC line site, infection of the PICC line site, thrombosis associated with the PICC line, hematoma formation at the PICC line site, drug reaction to blood thinners or other medications, valve-related infection exacerbation,
insufficient anticoagulation management, inadequate vessel liner or blockage, incomplete antibiotic coverage or dosing adjustments needed.
-Data:
Category 1
The PICC line was evaluated by the PICC team and managed with GelFoam for hemostasis, preventing the need for a stitch.
Category 2
Input from the patients [id number]-ech, a physical therapist, was considered regarding the management of the PICC line and potential alternatives compatible with the patients anticoagulant therapy.
-Risk:
Consideration of Admission/Observation: Escalation of care including admission/observation was considered given the complexity and risk of the patients presenting complaint, exam findings, and/or their underlying comorbidities. However, I feel the
patient is safe for outpatient management with close follow-up. Reasoning: Work-up reassuring, does not reveal any acute life/organ-threatening processes, patients symptoms well controlled upon reevaluation, reexamination is reassuring, vitals are
stable, patient agreeable with discharge, reliable for follow-up.
DIAGNOSIS
- Encounter for attention to other vascular implant and graft, PICC line (Z45.2)
- Anticoagulation therapy complication, bleeding (T45.515A)
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
Phy Exam
Physical Exam
Physical Exam:
.
Course
Orders/Labs/Results
Orders:
Orders
08/02/25 18:03
CeFAZolin 2 GRAM [Ancef] 2 grams in 10 ml IV NOW
08/02/25 18:32
CR Chest Single View Urgent
Comment:
Reason For Exam: PICC assessment
08/02/25 20:17
CeFAZolin 2 GRAM [Ancef] 2 grams in 10 ml .ROUTE .STK-MED
Vital Signs
Initial and Last Documented VS:
Initial Vital Signs
Temp Pulse Resp BP Pulse Ox
98.1 F 61 18 150/72 98
08/02/25 15:32 08/02/25 15:32 08/02/25 15:32 08/02/25 15:32 08/02/25 15:32
Last Documented Vital Signs
Temp Pulse Resp BP Pulse Ox
98.1 F 61 18 161/74 98
08/02/25 15:32 08/02/25 18:44 08/02/25 18:44 08/02/25 18:44 08/02/25 20:22
*Pulse Oximetry
SaO2: 98
Oxygen Mode of Delivery: Room air
Patient hypoxic: no
*Critical Care Note
Total Time (30-74mins, 75-104mins- exclusive of procedures): Not Applicable
ED Attending Note
-
Portions of this chart may have been created with voice recognition software.� Occasional wrong word or��sound alike� substitutions may have occurred due to the inherent limitations of voice recognition software.
Discharge Plan
Departure
Patient Disposition: Home (Routine Discharge)
Date of Disposition: 08/02/25
Time of Disposition: 20:24
Patient with high blood pressure during this ER visit?: Yes
Discharge Problem:
Bleeding from PICC line
Prescriptions:
No Action
atorvastatin 80 mg tablet
80 mg PO DAILY
clonidine HCl 0.1 mg tablet
0.1 mg PO BID
carvedilol 6.25 mg tablet
6.25 mg PO BID
tamsulosin 0.4 mg capsule
0.4 mg PO HS
irbesartan 75 mg tablet
75 mg PO DAILY
irbesartan 150 mg tablet
150 mg PO HS
dutasteride 0.5 mg capsule
0.5 mg PO DAILY
tadalafil 5 mg tablet
5 mg PO DAILY
Eliquis 5 mg tablet
5 mg PO BID
dapagliflozin propanediol [Farxiga] 10 mg tablet
10 mg PO DAILY
cefazolin 10 gram Recon Soln
2 g IV Q8H Qty: 0 0RF
Referrals:
Pablo Garnica MD [Family Provider, Internal Medicine]
Activity Restrictions/Additional Instructions:
Bleeding from PICC line
Please keep dressing intact and return immediately for bleeding, redness, swelling or any other concerns. Continue your antibiotics and follow-up with your doctor as planned
Interventions
Interventions:
*Risk Screen - Suicide Last Done: 08/02/25 15:32
*Neglect/Abuse Screening Last Done: 08/02/25 15:32
ZQ-Uembsl-Ieotfhszrp Assessment Last Done: 08/02/25 18:41
ED-Male Genitourinary Assessment Last Done: 08/02/25 18:41
Discharge Date and Time
Print Language: KISWAHILI
== END 2025-08-02 20:55 | disposition home or self-care (01) ==
LOC: EMR 15:30
PROVIDERS: EMERGENCY PHYSICIAN Emergency Medicine; FAMILY PHYSICIAN Internal Medicine
DX: T82.838A Hemorrhage due to vascular prosthetic devices, implants and grafts, initial encounter (principal); Y83.8 Other surgical procedures as the cause of abnormal reaction of the patient, or of later complication, without mention of misadventure at the time of the procedure; Z79.01 Long term (current) use of anticoagulants
CPT/HCPCS: 99283; 96374; 71045

== ENCOUNTER 2025-08-03 13:12 | Emergency (ER) | payer MEDICARE, OTHER, SELFPAY ==
[2025-08-03 13:16] VITALS: BP 135/63
--- NOTE | 2025-08-03 15:04 | ED.GENMED ---
History of Present Illness
General
Chief Complaint: Catheter/Tube Problem
Source: patient
Exam Limitations: none
Time Seen by Provider: 08/03/25 14:44
Nursing documentation reviewed up to this point in time: agreed with
History of Present Illness
History of Present Illness:
Patient discharged from the hospital 2 days ago after being treated for bacteremia, with a PICC line in place for continual outpatient infusion of antibiotics, presents to ED for evaluation secondary to bleeding from PICC line insertion site.
Patient was seen in ED yesterday for similar complaint. Pt was able to complete AM infustion of abx this morning at 11AM. Denies fever/chills
Review of Systems
Review of Systems
Allergies reviewed?: Yes
All Other Systems: ROS reviewed and negative except as documented in HPI and ROS
Constitutional: Reports no symptoms; Denies fever
Skin: Reports other (bleeding from PICC line)
Neurological: Reports no symptoms
Phy Exam
Physical Exam
Physical Exam:
Physical Exam
General: no apparent distress, not acutely ill. afebrile
Head: nc/at. eomi
Neck: supple. normal range of motion
Neuro: alert and oriented x 3. no focal neurological deficits
Skin: RUE : PICC line in place with blood noted underneath dressing, without swelling. nontender to palpation
Psychiatric: well kept. interactive and cooperative
Extremities: no edema.
Course
Vital Signs
Initial and Last Documented VS:
Initial Vital Signs
Temp Pulse Resp BP Pulse Ox
97.9 F 60 18 135/63 96
08/03/25 13:16 08/03/25 13:16 08/03/25 13:16 08/03/25 13:16 08/03/25 13:16
Last Documented Vital Signs
Temp Pulse Resp BP Pulse Ox
97.9 F 60 18 135/63 96
08/03/25 13:16 08/03/25 13:16 08/03/25 13:16 08/03/25 13:16 08/03/25 15:04
Procedures
Laceration Closure
Right Upper Arm:
Status of Wound: clean
Type of Closure: single layer closure
Skin Closure Material: 6-0 nylon
Number of sutures: 2
Additional information:
2 sutures placed below the PICC line insertion site
MDM/Problems Addressed
MDM/Problems Addressed:
2 sutures placed for tight closure around the PICC line catheter. Subsequently, sterile dressing applied by IV team along with application of Quickclot. Pt subsequently observed for > 1hr without further bleeding and dressing remains dry. Pt will
be discharged home in stable condition, to the care of his spouse
*Pulse Oximetry
SaO2: 96
Oxygen Mode of Delivery: Room air
Patient hypoxic: no
*Critical Care Note
Total Time (30-74mins, 75-104mins- exclusive of procedures): Not Applicable
ED Attending Note
-
Portions of this chart may have been created with voice recognition software.� Occasional wrong word or��sound alike� substitutions may have occurred due to the inherent limitations of voice recognition software.
Discharge Plan
Departure
Patient Disposition: Home (Routine Discharge)
Date of Disposition: 08/03/25
Time of Disposition: 16:59
Patient with high blood pressure during this ER visit?: Yes
Condition: Good
Discharge Problem:
Bleeding from PICC line
Instructions: How to care for a peripherally inserted central catheter (PICC)
Prescriptions:
No Action
atorvastatin 80 mg tablet
80 mg PO DAILY
clonidine HCl 0.1 mg tablet
0.1 mg PO BID
carvedilol 6.25 mg tablet
6.25 mg PO BID
tamsulosin 0.4 mg capsule
0.4 mg PO HS
irbesartan 75 mg tablet
75 mg PO DAILY
irbesartan 150 mg tablet
150 mg PO HS
dutasteride 0.5 mg capsule
0.5 mg PO DAILY
tadalafil 5 mg tablet
5 mg PO DAILY
Eliquis 5 mg tablet
5 mg PO BID
dapagliflozin propanediol [Farxiga] 10 mg tablet
10 mg PO DAILY
cefazolin 10 gram Recon Soln
2 g IV Q8H Qty: 0 0RF
Referrals:
Pablo Garnica MD [Family Provider, Internal Medicine]
Activity Restrictions/Additional Instructions:
As discussed, please follow-up with your primary care physician with any further concerns.
Interventions
Interventions:
*Risk Screen - Suicide Last Done: 08/03/25 13:16
*General Assessment Last Done: 08/03/25 13:16
*Neglect/Abuse Screening Last Done: 08/03/25 17:32
*ED- Fall Risk Assessment Last Done: 08/03/25 14:43
*ED COVID-19 Vaccine History Last Done: 08/03/25 14:43
*ED Influenza Vaccine History Last Done: 08/03/25 14:43
*Nursing Disposition Last Done: 08/03/25 17:32
FS-Aihtqd-Lknzpbvnhk Assessment Last Done: 08/03/25 14:43
ED-Male Genitourinary Assessment Last Done: 08/03/25 14:43
Discharge Date and Time
Discharge Date/Time: 08/03/25 17:32
Print Language: FRENCH
--- NOTE | 2025-08-03 15:54 | VATNOTE ---
Returns to ER with oozing right below picc insertion site. 2 sutures placed by MD Jean Baptiste. Sterile redress completed with Quickclot and sterile gauze. VN will be out Tuesday to redress.
== END 2025-08-03 17:32 | disposition home or self-care (01) ==
LOC: EMR 13:12
PROVIDERS: EMERGENCY PHYSICIAN Emergency Medicine; FAMILY PHYSICIAN Internal Medicine
DX: T82.838A Hemorrhage due to vascular prosthetic devices, implants and grafts, initial encounter (principal); Y83.8 Other surgical procedures as the cause of abnormal reaction of the patient, or of later complication, without mention of misadventure at the time of the procedure
CPT/HCPCS: 12001; 80048; 85027; 99282; 99283

== ENCOUNTER 2025-08-03 19:48 | Emergency (ER) | payer MEDICARE, OTHER, SELFPAY ==
[2025-08-03 20:02] VITALS: BP 136/70
[2025-08-03 22:03] LABS: Hematocrit 31.0 % (39.0-52.0); Hemoglobin 10.7 g/dL (13.0-18.0); Mean Corp Hgb Conc. 34.5 g/dL (33.0-37.0); Mean Corpuscular Volume 101.0 fL (80.0-94.0); Platelet Count 76 10^3/uL (130-400); Red Cell Dist. Width 16.8 % (11.5-14.5)
--- NOTE | 2025-08-03 22:16 | ED.GENMED ---
History of Present Illness
General
Chief Complaint: Catheter/Tube Problem
Source: patient and spouse
Time Seen by Provider: 08/03/25 21:29
Nursing documentation reviewed up to this point in time: agreed with
History of Present Illness
History of Present Illness:
Patient discharged from ED earlier today, after being evaluated for bleeding around the PICC line placement site, returns secondary to continual bleeding since returning home. Denies new trauma. Denies fever or chills. Denies dizziness. Denies
weakness. Denies shortness of breath. Patient does take Eliquis chronically.
Review of Systems
Review of Systems
Allergies reviewed?: Yes
All Other Systems: ROS reviewed and negative except as documented in HPI and ROS
Constitutional: Reports no symptoms
Skin: Reports other (bleeding from PICC line site)
Neurological: Reports no symptoms
Phy Exam
Physical Exam
Physical Exam:
Physical Exam
General: no apparent distress, not acutely ill
Neck: supple. normal range of motion
Neuro: alert and oriented x 3. no focal neurological deficits
Skin: RUE PICC line noted with dressing saturated with blood
Psychiatric: well kept. interactive and cooperative
Extremities: no edema. no calf tenderness.
Course
Orders/Labs/Results
Orders:
Orders
08/03/25 21:44
Basic Metabolic Panel Urgent
Complete Blood Count/No Diff Urgent
Abnormal Lab Results
08/03/25
21:44
RBC 3.07 L 10^6/uL
(4.70-6.10)
Hgb 10.7 L g/dL
(13.0-18.0)
Hct 31.0 L %
(39.0-52.0)
MCV 101.0 H fL
(80.0-94.0)
MCH 34.9 H pg
(27.0-31.0)
RDW 16.8 H %
(11.5-14.5)
Plt Count 76 L D 10^3/uL
(130-400)
Sodium 134 L mmol/L
(135-145)
Glucose 119 H mg/dl
(70-99)
08/03/25 21:44
08/03/25 21:44
Vital Signs
Initial and Last Documented VS:
Initial Vital Signs
Temp Pulse Resp BP Pulse Ox
98.5 F 74 16 136/70 96
08/03/25 20:02 08/03/25 20:02 08/03/25 20:02 08/03/25 20:02 08/03/25 20:02
Last Documented Vital Signs
Temp Pulse Resp BP Pulse Ox
98.5 F 74 16 136/70 96
08/03/25 20:02 08/03/25 20:02 08/03/25 20:02 08/03/25 20:02 08/03/25 22:28
MDM/Problems Addressed
MDM/Problems Addressed:
Offered admission to the hospital for PICC line replacement tomorrow. However, patient prefers to go home tonight and return for definitive replacement. As such, discussed with on-call interventional radiologist, who will be able to see the
patient as outpatient on Tuesday. Patient given contact information to call on Tuesday for an appt.
*Pulse Oximetry
SaO2: 96
Oxygen Mode of Delivery: Room air
Patient hypoxic: no
*Critical Care Note
Total Time (30-74mins, 75-104mins- exclusive of procedures): Not Applicable
ED Attending Note
-
Portions of this chart may have been created with voice recognition software.� Occasional wrong word or��sound alike� substitutions may have occurred due to the inherent limitations of voice recognition software.
Discharge Plan
Departure
Patient Disposition: Home (Routine Discharge)
Date of Disposition: 08/03/25
Time of Disposition: 22:28
Patient with high blood pressure during this ER visit?: Yes
Discharge Problem:
Bleeding from PICC line
Instructions: How to care for a peripherally inserted central catheter (PICC)
Prescriptions:
No Action
atorvastatin 80 mg tablet
80 mg PO DAILY
clonidine HCl 0.1 mg tablet
0.1 mg PO BID
carvedilol 6.25 mg tablet
6.25 mg PO BID
tamsulosin 0.4 mg capsule
0.4 mg PO HS
irbesartan 75 mg tablet
75 mg PO DAILY
irbesartan 150 mg tablet
150 mg PO HS
dutasteride 0.5 mg capsule
0.5 mg PO DAILY
tadalafil 5 mg tablet
5 mg PO DAILY
Eliquis 5 mg tablet
5 mg PO BID
dapagliflozin propanediol [Farxiga] 10 mg tablet
10 mg PO DAILY
cefazolin 10 gram Recon Soln
2 g IV Q8H Qty: 0 0RF
Referrals:
David Ortiz MD [Active, Radiology]
Pablo Garnica MD [Family Provider, Internal Medicine]
Activity Restrictions/Additional Instructions:
As discussed, please follow-up with referred interventional radiologist for an evaluation on Tuesday. Please call [phone] on Tuesday morning, to make an appt.
Interventions
Interventions:
*Risk Screen - Suicide Last Done: 08/03/25 20:02
*General Assessment Last Done: 08/03/25 20:02
*Neglect/Abuse Screening Last Done: 08/03/25 20:02
*ED- Fall Risk Assessment Last Done: 08/03/25 20:02
*ED COVID-19 Vaccine History Last Done: 08/03/25 20:02
*ED Influenza Vaccine History Last Done: 08/03/25 20:02
*Nursing Disposition Last Done: 08/03/25 23:32
FJ-Cyyndr-Asoadnjtah Assessment Last Done: 08/03/25 22:57
ED-Male Genitourinary Assessment Last Done: 08/03/25 22:57
Discharge Date and Time
Discharge Date/Time: 08/03/25 23:36
Print Language: KITTITIAN
[2025-08-03 22:17] LABS: Blood Urea Nitrogen 18 mg/dl (9-20); Calcium 8.9 mg/dl (8.4-10.2); Carbon Dioxide 27 mmol/L (22-30); Chloride 103 mmol/L (98-107); Glucose 119 mg/dl (70-99); Potassium 4.1 mmol/L (3.5-5.1); Sodium 134 mmol/L (135-145); eGFR > 60.00
== END 2025-08-03 23:36 | disposition home or self-care (01) ==
LOC: EMR 19:48
PROVIDERS: EMERGENCY PHYSICIAN Emergency Medicine; FAMILY PHYSICIAN Internal Medicine
DX: T82.838A Hemorrhage due to vascular prosthetic devices, implants and grafts, initial encounter (principal); Y83.8 Other surgical procedures as the cause of abnormal reaction of the patient, or of later complication, without mention of misadventure at the time of the procedure
CPT/HCPCS: 99283; 80048; 85027

== ENCOUNTER → 2025-08-05 10:35 | Outpatient (REF) | payer MEDICARE, OTHER, SELFPAY ==
--- NOTE | 2025-08-05 11:11 | W.PN.UPDATE ---
Update Note
Progress Note Update
89 yo male with right arm SL PICC presents for bleeding around the PICC line. 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 He had the PICC placed in the hospital on 08/01/25 by the PICC team. He went to the ER on Thursday 08/02 and Tuesday
08/03 for bleeding. On Tuesday the ER placed sutures and a pressure dressing. They spoke with IR attneding commercial construction superintendent and asked to patient to call IR to schedule a PICC replacement for today. He arrives in IR for eval. He has had no further
bleeding since Tuesday night. Pressure dressing was removed here. The dressing is still CDI. The PICC flushes and aspirates easily. He used the PICC line today for antibiotic infusion without any issues. Since he has platelets of 76 and is on
Eliquis 5mg BID we recommend not changing PICC to the left arm since this could result in rebleeding. Pt was comfortable with this plan. He was given our card and advised to call for any further issues
== END ==
LOC: RADI 10:35
PROVIDERS: ATTENDING PHYSICIAN Radiology Diagnostic Radiology; FAMILY PHYSICIAN Internal Medicine
DX: T82.838A Hemorrhage due to vascular prosthetic devices, implants and grafts, initial encounter (principal); Y82.8 Other medical devices associated with adverse incidents

== ENCOUNTER 2025-09-09 13:33 | Emergency (ER) | payer MEDICARE, OTHER, SELFPAY ==
[2025-09-09 13:44] VITALS: BP 144/78
--- NOTE | 2025-09-09 14:06 | ED.GENMED ---
History of Present Illness
General
Chief Complaint: Catheter/Tube Problem
Source: patient
Exam Limitations: none
Time Seen by Provider: 09/09/25 13:48
Nursing documentation reviewed up to this point in time: agreed with
History of Present Illness
History of Present Illness:
Patient is an 89 -year-old female with a PICC line to his right upper arm sent here to the ED for picc line removal. Patient reports he did have an issue with bleeding from the site when the PICC line was in. In fact he was seen here August 03
and had 2 sutures placed by the ER physician. He has had no further bleeding since. He has since completed antibiotics and sent here for removal. He is on Eliquis and has a history of low platelets. His platelets on August 03 were 76,000 and
they were in the 40s to 50s prior to that.
Phy Exam
General Physical Exam
General Presentation: no apparent distress
General age: appears stated age
General Skin: warm and dry
General Habitus: normal
General Mental: alert
General Hydration: appears well hydrated
Neurological Exam
Neurological Exam: alert and oriented x3
Musculoskeletal Exam
Musculoskeletal Exam: full ROM
Skin Exam
Skin Exam: normal color and warm/dry
Psychiatric Exam
Psychiatric Exam: normal mood/affect
Course
Orders/Labs/Results
Orders:
Orders
09/09/25 14:[address] Non Medication Order As Directed
Physician Order: discontinue(removal picc line)
Vital Signs
Initial and Last Documented VS:
Initial Vital Signs
Temp Pulse Resp BP Pulse Ox
98.5 F 64 16 144/78 97
09/09/25 13:44 09/09/25 13:44 09/09/25 13:44 09/09/25 13:44 09/09/25 13:44
Last Documented Vital Signs
Temp Pulse Resp BP Pulse Ox
98.5 F 64 16 144/78 97
09/09/25 13:44 09/09/25 13:44 09/09/25 13:44 09/09/25 13:44 09/09/25 14:11
MDM/Problems Addressed
Differential Diagnosis Includes:
Not limited to encounter for PICC line removal
MDM/Problems Addressed:
Patient is 89-year-old male who presented to the ER for PICC line removal of right upper arm. Patient has had issues with bleeding in the past and he is on Eliquis and had a history of low platelets. IV team was called to bedside. I was able to
assess and remove sutures and PICC line was successfully removed by IV team nurse without any bleeding. Will monitor to ensure no further bleeding and plan to discharge home
*Pulse Oximetry
SaO2: 97
Oxygen Mode of Delivery: Room air
Patient hypoxic: no
*Critical Care Note
Total Time (30-74mins, 75-104mins- exclusive of procedures): Not Applicable
Data Reviewed
Review of Other/Old Records Reveals: Labs and Other (previous ED visit )
ED Attending Note
-
Portions of this chart may have been created with voice recognition software.� Occasional wrong word or��sound alike� substitutions may have occurred due to the inherent limitations of voice recognition software.
Discharge Plan
Departure
Patient Disposition: Home (Routine Discharge)
Date of Disposition: 09/09/25
Time of Disposition: 14:49
Patient with high blood pressure during this ER visit?: Yes
Condition: Fair
Covid-19: Not Applicable
Discharge Problem:
PICC line removal
Instructions: BLOOD PRESSURE
Prescriptions:
No Action
atorvastatin 80 mg tablet
80 mg PO DAILY
clonidine HCl 0.1 mg tablet
0.1 mg PO BID
carvedilol 6.25 mg tablet
6.25 mg PO BID
tamsulosin 0.4 mg capsule
0.4 mg PO HS
irbesartan 75 mg tablet
75 mg PO DAILY
irbesartan 150 mg tablet
150 mg PO HS
dutasteride 0.5 mg capsule
0.5 mg PO DAILY
tadalafil 5 mg tablet
5 mg PO DAILY
Eliquis 5 mg tablet
5 mg PO BID
dapagliflozin propanediol [Farxiga] 10 mg tablet
10 mg PO DAILY
Activity Restrictions/Additional Instructions:
Your PICC line was removed here.
Return if any worsening of symptoms including any bleeding
Interventions
Interventions:
*Risk Screen - Suicide Last Done: 09/09/25 13:44
*General Assessment Last Done: 09/09/25 13:44
*Neglect/Abuse Screening Last Done: 09/09/25 13:44
*Nursing Disposition Last Done: 09/09/25 15:25
Discharge Date and Time
Discharge Date/Time: 09/09/25 15:30
Print Language: AUSTRIAN
--- NOTE | 2025-09-09 14:48 | VATNOTE ---
Called to remove right sl picc. Picc removed without difficulty. TCL 46CM
== END 2025-09-09 15:30 | disposition home or self-care (01) ==
LOC: EMR 13:33
PROVIDERS: EMERGENCY PHYSICIAN Emergency Medicine
DX: Z45.2 Encounter for adjustment and management of vascular access device (principal); Z79.01 Long term (current) use of anticoagulants; Z86.2 Personal history of diseases of the blood and blood-forming organs and certain disorders involving the immune mechanism
CPT/HCPCS: 99283